=== PATIENT | female | born 1985 | race Hispanic/Latino ===

== ENCOUNTER 2018-10-01 20:14 | Emergency (ER) | payer SELFPAY ==
[~2018-10-01] VITALS: Ht 165.1 cm; Wt 86.2 kg
[~2018-10-01 20:14] MED LIST: MOTRIN; TYLENOL
[2018-10-01] MEDS ORDERED: ORPHENADRINE CITRATE 30 MG/ML VIAL IM ONE (20:45)
[2018-10-01] MEDS ORDERED: KETOROLAC TROMETHAMINE 60 MG/2 ML VIAL IM ONE (20:45)
== END 2018-10-01 21:25 | disposition home or self-care (01) ==
LOC: ER 20:14
DX: S39.012A Strain of muscle, fascia and tendon of lower back, initial encounter (principal); X50.0XXA Overexertion from strenuous movement or load, initial encounter; Y93.F1 Activity, caregiving, bathing; Y92.002 Bathroom of unspecified non-institutional (private) residence as the place of occurrence of the external cause; M54.42 Lumbago with sciatica, left side
CPT/HCPCS: 99282; J1885; J2360

== ENCOUNTER 2019-09-10 18:38 | Emergency (ER) | payer SELFPAY ==
[~2019-09-10] VITALS: Ht 165.1 cm; Wt 99.8 kg
--- OUTSIDE RECORDS SUMMARY | 2019-09-10 18:41 | XMS REPORT ---
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 Allergies, Adverse Reactions, Alerts Allergy Name Allergy Type Status Severity Reaction(s) Onset Date Inactive Date Treating Clinician Comments No Known Allergies DA Active U 2019-05-14 00:00:00 Medications This patient has no known medications. Results Test Description Test Time Test Comments Text Results Atomic Results Result Comments STREPTOCOCCUS PCR SCREEN 2019-05-15 05:46:00 STREPTOCOCCUS DYSGALACTIAE (test code=STREPGC) NEGATIVE FOR G/C NEGATIVE STREPA MOLECULAR (test code=STREPAMOL) NEGATIVE FOR GRP A NEGATIVE URINE HCG TRIAGE (ER ONLY)2019-05-14 14:20:00* Test Item Value Reference Range Comments URINE HCG TRIAGE (ER ONLY) (test code=HCGTRIAGE) Negative Urine Test Result: NEGATIVEAre internal controls (presence of a contro l line & clear background) OK? YLot # of HCG Test Kit: [id number] Date of Kit: 09/04/2020Test Performed by: Tori Perfomed on: 05/14/19- XR CHEST 2 [id number] 12:58:00 FAX: Hugh Ramirez Maurice: B St: REG FAX: Morro Jennings NP [phone] Name: COLLEEN FISH [facility] : 1985 Age/S: 33/F [address] Unit #: [id number] Loc: [place] [address] Phys: Morro Jennings FRIT MIXER AND BURNER Acct: [id number] Dis Date: Status: REG ER PHONE #: [phone] Exam Date: 05/14/2019 1229 FAX #: [phone] Reason: cough EXAMS: CPT CODE: [id number] XR CHEST 2 V 13672 REASON FOR EXAM: cough Exam Order Date: 05/14/2019 11:32 AM Ordering M.Isidra: Morro Jennings NP PROCEDURE: - XR CHEST 2 V COMPARISON: None FINDINGS: The lungs are clear. There is no pleural effusion or pneumothorax. Pulmonary vascularity is within normal limits. Cardiomediastinal silhouette is normal in size for technique. The mediastinal contours are within normal limits. Musculoskeletal structures are within normal limits. The visualized upper abdomen is within normal limits. IMPRESSION: No acute cardiopulmonary process. Location: [facility] at 1258 Reported and signed by: Robert Vazquez MD CC: Hugh Ramirez MD; Morro Jennings NP Ramana hnologist: ORLANDO MCGRATH RT(R) Trnscrd Date/T mary jane/By: 05/14/2019 (1166) : By: [email or web address] Orig Print D/T: S: 9 (9191) PAGE 1 Signed Report
[2019-09-10] MEDS ORDERED: ONDANSETRON HCL INJ 2MG/ML 2ML 2 MG/ML VIAL IV STA (19:35)
[2019-09-10] MEDS ORDERED: SODIUM CHLORIDE 0.9% 1000ML 1,000 ML IV STA (19:35)
[2019-09-10] MEDS ORDERED: ACETAMIN/BUTALBITAL/CAFFEINE TAB PO ONE (19:45)
[2019-09-10 19:54] LABS: BASOPHILS % 0.4 % (0.0-1.0); EOSINOPHILS # (AUTO) 0.2 (0.0-0.4); EOSINOPHILS % 1.9 % (0.0-6.0); HEMATOCRIT 36.2 % (34.2-44.1); HEMOGLOBIN 11.1 g/dL (12.0-16.0); LYMPHOCYTES # (AUTO) 2.4 (1.0-3.2); LYMPHOCYTES % 30.6 % (18.0-39.1); MEAN CORPUSCULAR HEMOGLOBIN 23.5 pg (28-32); MEAN CORPUSCULAR HGB CONC 30.7 g/dL (31-35); MEAN CORPUSCULAR VOLUME 76.5 fL (81-99); MONOCYTES # (AUTO) 0.5 (0.2-0.8); MONOCYTES % 6.5 % (4.4-11.3); NEUTROPHILS # (AUTO) 4.7 (2.1-6.9); NEUTROPHILS % 60.3 % (38.7-80.0); PLATELET COUNT 413 x10e3/uL (140-360); RED BLOOD COUNT 4.73 x10e6/uL (3.6-5.1); RED CELL DISTRIBUTION WIDTH 15.5 % (11.7-14.4)
[2019-09-10 20:11] LABS: ALANINE AMINOTRANSFERASE 19 IU/L (0-55); ALBUMIN 3.8 g/dL (3.5-5.0); ALBUMIN/GLOBULIN RATIO 0.9 (0.8-2.0); ALKALINE PHOSPHATASE 82 IU/L (40-150); ANION GAP 12.9 mmol/L (8-16); BLOOD UREA NITROGEN 12 mg/dL (7-26); BUN/CREATININE RATIO 13 (6-25); CALCIUM 9.3 mg/dL (8.4-10.2); CARBON DIOXIDE 22 mmol/L (22-29); CHLORIDE 107 mmol/L (98-107); EST GLOMERULAR FILTRATION RATE > 60 ML/MIN (60-); GLUCOSE 115 mg/dL (74-118); POTASSIUM 3.9 mmol/L (3.5-5.1); SODIUM 138 mmol/L (136-145)
--- NOTE | 2019-09-10 20:25 | Diagnostic Imaging Report ---
EXAMINATION: Head CT without contrast. HISTORY:Headache for 7 days, photosensitivity. COMPARISON:None. TECHNIQUE: Multidetector axial images were obtained from the foramen magnum to the vertex without contrast. The images were reconstructed using brain and bone algorithms. Thin section brain images were reformatted into coronal and sagittal planes. Dose modulation, iterative reconstruction, and/or weight based adjustment of the mA/kV was utilized to reduce the radiation dose to as low as reasonably achievable. Intravenous contrast: None IMAGE QUALITY: Acceptable. FINDINGS: Skull/scalp: No lytic or blastic. lesions. No surgical changes. Parenchyma: No abnormal density. No acute hemorrhage, mass or acute major vascular territorial infarct. Arteries: No density suggestive of thrombosis. Dural sinuses: No abnormal density suggestive of thrombosis. Ventricles: No hydrocephalus or displacement. Extra-axial spaces: No abnormal density. Brain volume: Mild generalized cerebral volume loss, advanced for patient's given age. Craniocervical junction: No mass, Chiari malformation, or basilar invagination. Sella: No mass. Paranasal/mastoid sinuses: Imaged portions unremarkable. IMPRESSION: No acute intracranial abnormality. Mild generalized cerebral volume loss. Signed by: Dr. Yesica Gonzalez M.D. on 09/10/2019 8:22 PM
[2019-09-10 20:31] LABS: BILIRUBIN,URINE NEGATIVE (NEGATIVE); CLARITY,URINE CLEAR (CLEAR); COLOR,URINE YELLOW (YELLOW); KETONES,URINE NEGATIVE (NEGATIVE); LEUKOCYTE ESTERASE ,URINE NEGATIVE (NEGATIVE); NITRITE,URINE NEGATIVE (NEGATIVE); PROTEIN,URINE DIPSTICK NEGATIVE (NEGATIVE); URINE UROBILINOGEN 1 mg/dL (0.2 - 1)
[2019-09-10 20:48] LABS: BACTERIA,URINE FEW /HPF; EPITHELIAL CELLS,URINE MODERATE /LPF; RBC,URINE 0-5 /HPF (0-5)
[2019-09-10] MEDS ORDERED: KETOROLAC TROMETHAMINE 30 MG/ML VIAL IV SCH (21:25)
== END 2019-09-10 23:40 | disposition home or self-care (01) ==
LOC: ER 18:38
DX: G44.89 Other headache syndrome (principal)
CPT/HCPCS: 36415; 70450; 80053; 81001; 84702; 85025; 87086; 99284; J1885; J2405; J7030

== ENCOUNTER 2020-04-21 17:42 | Inpatient (IN) | payer SELFPAY ==
[~2020-04-21] VITALS: Ht 165.1 cm; Wt 106.6 kg
[2020-04-21 18:18] LABS: BASOPHILS % 0.3 % (0.0-1.0); EOSINOPHILS # (AUTO) 0.1 (0.0-0.4); HEMOGLOBIN 11.7 g/dL (12.0-16.0); LYMPHOCYTES # (AUTO) 1.8 (1.0-3.2); LYMPHOCYTES % 28.3 % (18.0-39.1); MEAN CORPUSCULAR HEMOGLOBIN 24.4 pg (28-32); MEAN CORPUSCULAR HGB CONC 30.8 g/dL (31-35); MEAN CORPUSCULAR VOLUME 79.3 fL (81-99); MONOCYTES # (AUTO) 0.4 (0.2-0.8); MONOCYTES % 6.5 % (4.4-11.3); NEUTROPHILS # (AUTO) 4.1 (2.1-6.9); NEUTROPHILS % 62.7 % (38.7-80.0); PLATELET COUNT 368 x10e3/uL (140-360); RED BLOOD COUNT 4.79 x10e6/uL (3.6-5.1); RED CELL DISTRIBUTION WIDTH 15.3 % (11.7-14.4)
[2020-04-21 18:24] LABS: CLARITY,URINE CLEAR (CLEAR); COLOR,URINE YELLOW (YELLOW); KETONES,URINE NEGATIVE (NEGATIVE); LEUKOCYTE ESTERASE ,URINE NEGATIVE (NEGATIVE); NITRITE,URINE NEGATIVE (NEGATIVE); PROTEIN,URINE DIPSTICK NEGATIVE (NEGATIVE); URINE UROBILINOGEN 0.2 mg/dL (0.2 - 1)
[2020-04-21 18:25] LABS: BILIRUBIN,URINE NEGATIVE (NEGATIVE); PREGNANCY TEST, URINE NEGATIVE (NEGATIVE)
[2020-04-21 18:29] LABS: BACTERIA,URINE MODERATE /HPF; EPITHELIAL CELLS,URINE FEW /LPF
--- OUTSIDE RECORDS SUMMARY | 2020-04-21 18:32 | XMS REPORT | Continuity of Care Document ---
Author Author [facility] t Organization [facility] Address [address] [place] [address] Phone Unavailable Care Team Providers Care Assembler Molded Frames Name Role Phone NO, PCP PCP Unavailable Vilma PRABHAKAR Attphys Unavailable Payers Payer Name Policy Type Policy Number Effective Date Expiration Date S ludwig Self Pay NA 2019 00:00:00 [facility] [employer] Pos [id number] [facility] Problems This patient has no known problems. Allergies, Adverse Reactions, Alerts Allergy Name Allergy Type Status Severity Reaction(s) Onset Date Inacti ve Date Treating Clinician Comments Source No Known Allergies DA Active U 2019-05-14 00:00:00 [facility] Medications Ordered Medication Name Filled Medication Name Start Date Stop Da te Current Medication? Ordering Clinician Indication Dosage Frequency Signature (SIG) Comments Components Source Motrin Motrin Yes [facility] Tylenol Tylenol Yes [facility] Procedures Procedure Date / Time Performed Performing Clinician Sour e Computed tomography of brain without radiopaque contrast 202 00:00:00 KAYLYN JIMENEZ [facility] Encounters Start Date/Time End Date/Time Encounter Type Admission Type [facility] Care Department Encounter ID Source 2019-09-10 18:38:00 2019-09-10 23:40:00 Departed Emergency Room 1 APURVA PRABHAKAR [facility] [id number] [facility] 2018-10-01 20:14:00 2018-10-01 21:25:00 Departed Emergency Room [facility] [id number] [facility] Results Test Description Test Time Test Comments Results Result Comments Source Urine WBC 2019-09-10 20:48:00 Test Item Urine WBC (test code = 5821-4) NONE 0-5 [facility] LBN2932-04-10 20:48:00* Test Item Value Reference Range Interpretation Comments Urine RBC (test code = 96511-6) 0-5 0-5 [facility] Wswnkkuz5564-37-36 20:48:00* Test Item Value Reference Range Interpretation Comments Urine Bacteria (test code = 71076-6) FEW NONE [facility] Epithelial Nswtx1801-14-40 20:48:00 * Test Item Value Reference Range Interpretation Comments Urine Epithelial Cells (test code = 37801-3) MODERATE NONE [facility] Ipmvm8613-10-26 20:31:00* Test Item Value Reference Range Interpretation Comments Urine Color (test code = 5778-6) YELLOW YELLOW [facility] Eflakrh5021-50-80 20:31:00* Test Item Value Reference Range Interpretation Comments Urine Clarity (test code = 80370-0) CLEAR CLEAR [facility] Specific Mjqpvvo7679-76-18 20:31:00 * Test Item Value Reference Range Interpretation Comments Urine Specific [place] (test code = 5811-5) 1.030 1.010-1.02 5 H [facility] kP3961-52-79 20:31:00* Test Item Value Reference Range Interpretation Comments Urine pH (test code = 55844-7) 5.5 5-7 [facility] Leukocyte Jhsfjxen1797-38-24 20:31:00* Test Item Value Reference Range Interpretation Comments Urine Leukocyte Esterase (test code = 5799-2) NEGATIVE NEGATIVE [facility] Bujernn5815-47-10 20:31:00* Test Item Value Reference Range Interpretation Comments Urine Nitrite (test code = 31357-4) NEGATIVE NEGATIVE [facility] Gtlqwso2282-48-59 20:31:00* Test Item Value Reference Range Interpretation Comments Urine Protein (test code = 5804-0) NEGATIVE NEGATIVE [facility] Glucose (UA)2019-09-10 20:31:00* Test Item Value Reference Range Interpretation Comments Urine Glucose (UA) (test code = 2349-9) NEGATIVE NEGATIVE [facility] Gzzbhpn4582-09-47 20:31:00* Test Item Value Reference Range Interpretation Comments Urine Ketones (test code = 71801-3) NEGATIVE NEGATIVE [facility] Cporlspmeuuq1731-10-42 20:31:00* Test Item Value Reference Range Interpretation Comments Urine Urobilinogen (test code = 04653-2) 1 0.2-1 [facility] Qegojkfpm0498-61-64 20:31:00* Test Item Value Reference Range Interpretation Comments Urine Bilirubin (test code = 1978-6) NEGATIVE NEGATIVE [facility] Vpwys4487-51-58 20:31:00* Test Item Value Reference Range Interpretation Comments Urine Blood (test code = 04328-2) NEGATIVE NEGATIVE [facility] CampusCT BRAIN [id number] 20:20:00 [facility] [address] [place] [address] Patient Name: COLLEEN FISH MR #: [id number] : 1985 Age/Sex: 34/F Req #: [id number] Adm Physician: Ordered by: KAYLYN JIMENEZ DESK PENS ASSEMBLER Report #: [id number] Location: ER Room/Bed: Procedure: 030 [id number] CT/CT BRAIN WO Exam Date: 09/10/19 Exam Time: 1949 REPORT STATUS: Signed EXAM INATION: Head CT without contrast. HISTORY:Headache for 7 days, photos ensitivity. COMPARISON:None. TECHNIQUE: Multidetector axial images were o btained from the foramen magnum to the vertex without contrast. The images wer e reconstructed using brain and bone algorithms. Thin section brain images we re reformatted into coronal and sagittal planes. Dose modulation, iterative reconstruction, and/or weight based adjustment of the mA/kV was utilized to re duce the radiation dose to as low as reasonably achievable. Intravenous c ontrast: None IMAGE QUALITY: Acceptable. FINDINGS: Skull/scalp : No lytic or blastic. lesions. No surgical changes. Parenchyma: No abnor mal density. No acute hemorrhage, mass or acute major vascular territorial inf arct. Arteries: No density suggestive of thrombosis. Dural sinuse s: No abnormal density suggestive of thrombosis. Ventricles: No hydroceph alus or displacement. Extra-axial spaces: No abnormal density. Bra in volume: Mild generalized cerebral volume loss, advanced for patient's given age. Craniocervical junction: No mass, Chiari malformation, or basilar invagination. Sella: No mass. Paranasal/mastoid sinuses: Imaged por tions unremarkable. IMPRESSION: No acute intracranial abnormality. Mild generalized cerebral volume loss. Signed by: Blanquita Cherry on 09/10/2019 8:22 PM Dictated By: DELONTE GAGE MD Electronically Si gned By: DELONTE GAGE MD on 09/10/192021 Transcribed By: LOUIS on 2021 COPY TO: KAYLYN JIMENEZ NP Sodium Uztyr5151-33-90 20:14:00* Test Item Value Reference Range Interpretation Comments Sodium Level (test code = 2951-2) 138 136-145 [facility] CampusPotassium Dfvkg1831-08-96 20:14:00* Test Item Value Reference Range Interpretation Comments Potassium Level (test code = 2823-3) 3.9 3.5-5.1 [facility] CampusChloride Gwlna8821-41-23 20:14:00* Test Item Value Reference Range Interpretation Comments Chloride Level (test code = 2075-0) 107 98-107 [facility] CampusCarbon Dioxide Dbeoh3798-80-70 20:14:00* Test Item Value Reference Range Interpretation Comments Carbon Dioxide Level (test code = 2028-9) 22 22-29 [facility] CampusAnion Wtg8864-37-26 20:14:00* Test Item Value Reference Range Interpretation Comments Anion Gap (test code = 20305-9) 12.9 8-16 [facility] CampusBlood Urea Bexcogcp7123-97-79 20:14:00* Test Item Value Reference Range Interpretation Comments Blood Urea Nitrogen (test code = 3094-0) 12 7-26 [facility] CampusCreatinine2020-03-05 20:14:00* Test Item Value Reference Range Interpretation Comments Creatinine (test code = 2160-0) 0.90 0.57-1.11 [facility] CampusBUN/Creatinine Ebanj9541-11-73 20:14:00* Test Item Value Reference Range Interpretation Comments BUN/Creatinine Ratio (test code = 3097-3) 13 6- [facility] CampusEstimat Glomerular Filtration Rate 2019-09-10 20:14:00* Test Item Value Reference Range Interpretation Comments Estimat Glomerular Filtration Rate (test code = 876723669) > 60 >60 Ranges were taken from the National Kidney Disease Education Program and the [facility] Kid[facility] Foundation literature.Reference ranges:60 or greater: Gtksuj14-41 ( for 3 consecutive months): Chronic kidney disease 15 or less: Kidney failureThe University of [facility] Medical [facility] Health [facility] CampusGlucose Nrven5168-63-75 20:14:00* Test Item Value Reference Range Interpretation Comments Glucose Level (test code = BDC0169) 115 74-118 [facility] CampusCalcium Jajvi3242-23-55 20:14:00* Test Item Value Reference Range Interpretation Comments Calcium Level (test code = 72755-8) 9.3 8.4-10.2 [facility] CampusTotal Ekwsyzxsr4439-27-69 20:14:00* Test Item Value Reference Range Interpretation Comments Total Bilirubin (test code = 1975-2) 0.3 0.2-1.2 [facility] CampusAspartate Amino Transf (AST/SGOT) 2019-09-10 20:14:00* Test Item Value Reference Range Interpretation Comments Aspartate Amino Transf (AST/SGOT) (test code = Aspartate Amino Transf (AST/SGOT)) 22 5-34 [facility] CampusAlanine Aminotransferase (ALT/SGPT) 2019-09-10 20:14:00* Test Item Value Reference Range Interpretation Comments Alanine Aminotransferase (ALT/SGPT) (test code = 1742-6) 19 0-55 [facility] CampusTotal Wsdjcnx2563-43-69 20:14:00* Test Item Value Reference Range Interpretation Comments Total Protein (test code = 2885-2) 7.9 6.5-8.1 [facility] CampusAlbumin2020-03-05 20:14:00* Test Item Value Reference Range Interpretation Comments Albumin (test code = 1751-7) 3.8 3.5-5.0 [facility] CampusGlobulin2020-03-05 20:14:00* Test Item Value Reference Range Interpretation Comments Globulin (test code = 55676-9) 4.1 2.3-3.5 H [facility] CampusAlbumin/Globulin Cndoj4908-67-36 20:14:00 * Test Item Value Reference Range Interpretation Comments Albumin/Globulin Ratio (test code = 1759-0) 0.9 0.8-2.0 [facility] CampusAlkaline Uppeayvsryd9028-85-32 20:14:00* Test Item Value Reference Range Interpretation Comments Alkaline Phosphatase (test code = 6768-6) 82 40-150 [facility] CampusHuman Chorionic Gonadotropin, Qual 2019-09-10 20:05:00* Test Item Value Reference Range Interpretation Comments Human Chorionic Gonadotropin, Qual (test code = 2118-8) NEGATIVE NEGATIVE [facility] CampusWhite Blood Hurpv9820-33-35 19:56:00* Test Item Value Reference Range Interpretation Comments White Blood Count (test code = 6690-2) 7.79 4.8-10.8 [facility] CampusRed Blood Qvfuo0881-50-69 19:56:00* Test Item Value Reference Range Interpretation Comments Red Blood Count (test code = 789-8) 4.73 3.6-5.1 [facility] CampusHemoglobin2020-03-05 19:56:00* Test Item Value Reference Range Interpretation Comments Hemoglobin (test code = 48223-5) 11.1 12.0-16.0 L [facility] CampusHematocrit2020-03-05 19:56:00* Test Item Value Reference Range Interpretation Comments Hematocrit (test code = 4544-3) 36.2 34.2-44.1 [facility] CampusMean Corpuscular Kxgjrr4513-89-87 19:56:00* Test Item Value Reference Range Interpretation Comments Mean Corpuscular Volume (test code = 787-2) 76.5 81-99 L [facility] CampusMean Corpuscular Lmzqqkpqyb8540-28-10 19:56:00* Test Item Value Reference Range Interpretation Comments Mean Corpuscular Hemoglobin (test code = 785-6) 23.5 28-32 L [facility] CampusMean Corpuscular Hemoglobin Concent 2019-09-10 19:56:00* Test Item Value Reference Range Interpretation Comments Mean Corpuscular Hemoglobin Concent (test code = 786-4) 30.7 31-35 L [facility] CampusRed Cell Distribution Vuadt3930-19-14 19:56:00* Test Item Value Reference Range Interpretation Comments Red Cell Distribution Width (test code = 43433-6) 15.5 11.7 -14.4 H [facility] CampusPlatelet Rgoje0221-15-33 19:56:00* Test Item Value Reference Range Interpretation Comments Platelet Count (test code = 777-3) 413 140-360 H [facility] CampusNeutrophils (%) (Auto)2019-09-10 19:56:00 * Test Item Value Reference Range Interpretation Comments Neutrophils (%) (Auto) (test code = 48612-0) 60.3 38.7-80.0 [facility] CampusLymphocytes (%) (Auto)2019-09-10 19:56:00 * Test Item Value Reference Range Interpretation Comments Lymphocytes (%) (Auto) (test code = 736-9) 30.6 18.0-39.1 [facility] CampusMonocytes (%) (Auto)2019-09-10 19:56:00* Test Item Value Reference Range Interpretation Comments Monocytes (%) (Auto) (test code = 5905-5) 6.5 4.4-11.3 [facility] CampusEosinophils (%) (Auto)2019-09-10 19:56:00 * Test Item Value Reference Range Interpretation Comments Eosinophils (%) (Auto) (test code = 713-8) 1.9 0.0-6.0 [facility] CampusBasophils (%) (Auto)2019-09-10 19:56:00* Test Item Value Reference Range Interpretation Comments Basophils (%) (Auto) (test code = 706-2) 0.4 0.0-1.0 [facility] CampusIM GRANULOCYTES %2019-09-10 19:56:00* Test Item Value Reference Range Interpretation Comments IM GRANULOCYTES % (test code = IM GRANULOCYTES %) 0.3 0.0- 1.0 [facility] CampusNeutrophils # (Auto)2019-09-10 19:56:00* Test Item Value Reference Range Interpretation Comments Neutrophils # (Auto) (test code = 751-8) 4.7 2.1-6.9 [facility] CampusLymphocytes # (Auto)2019-09-10 19:56:00* Test Item Value Reference Range Interpretation Comments Lymphocytes # (Auto) (test code = 92142-0) 2.4 1.0-3.2 [facility] CampusMonocytes # (Auto)2019-09-10 19:56:00* Test Item Value Reference Range Interpretation Comments Monocytes # (Auto) (test code = 742-7) 0.5 0.2-0.8 [facility] CampusEosinophils # (Auto)2019-09-10 19:56:00* Test Item Value Reference Range Interpretation Comments Eosinophils # (Auto) (test code = 711-2) 0.2 0.0-0.4 [facility] CampusBasophils # (Auto)2019-09-10 19:56:00* Test Item Value Reference Range Interpretation Comments Basophils # (Auto) (test code = 704-7) 0.0 0.0-0.1 [facility] CampusAbsolute Immature Granulocyte (auto 2019-09-10 19:56:00* Test Item Value Reference Range Interpretation Comments Absolute Immature Granulocyte (auto (simón t code = Absolute Immature Granulocyte (auto) 0.02 0-0.1 [facility] CenterTREPTOCOCCUS PCR ZATEME9383-32-50 05:46:00* Test Item Value Reference Range Interpretation Comments STREPTOCOCCUS DYSGALACTIAE (test code = STREPGC) NEGATIVE FOR G/C N EGATIVE STREPA MOLECULAR (test code = STREPAMOL) NEGATIVE FOR GRP A NEGATIV E URINE HCG TRIAGE (ER ONLY)2019-05-14 14:20:00* Test Item Value Reference Range Interpretation Comments URINE HCG TRIAGE (ER ONLY) (test code = HCGTRIAGE) Negative Urine Test Result: NEGATIVEAre internal controls (presence of a contro l line & clear background) OK? YLot # of HCG Test Kit: [id number] Date of Kit: 09/04/2020Test Performed by: Tori Perfomed on: 05/14/19- XR CHEST 2 B7797-00-56 12:58:00 FAX: Hugh Ramirez Hope: B St: REG FAX: Morro Jennings NP [phone] Name: FISHCOLLEEN [facility] : 1985 Age/S: 33/F [address] Unit #: [id number] Loc: [place] [address] Phys: Morro Jennings NP Acct: [id number] Dis Date: Status: REG ER PHONE #: [phone] Exam Date: 05/14/2019 1229 FAX #: [phone] Reason: cough EXAMS: CPT CODE: [id number] XR CHEST 2 V 45670 REASON FOR EXAM: cough Exam Order Date: 05/14/2019 11:32 AM Ordering Wale: Morro Jennings NP PROCEDURE: - XR CHEST [...] limits. IMPRESSION: No acute cardiopulmonary process. Location: [facility] at 1258 Reported and signed by: Robert Vazquez MD CC: Hugh Ramirez MD; Morro Jennings NP Ramana hnologist: RT JUAN(R) Trnscrd Date/T mary jane/By: 05/14/2019 (7465) : By: [email or web address] Orig Print D/T: S: 9 (7358) PAGE 1 Signed Report
[2020-04-21 18:39] LABS: ALANINE AMINOTRANSFERASE 115 IU/L (0-55); ALBUMIN 3.6 g/dL (3.5-5.0); ALBUMIN/GLOBULIN RATIO 0.9 (0.8-2.0); ALKALINE PHOSPHATASE 89 IU/L (40-150); ANION GAP 14.2 mmol/L (8-16); BLOOD UREA NITROGEN 10 mg/dL (7-26); BUN/CREATININE RATIO 12 (6-25); CALCIUM 8.5 mg/dL (8.4-10.2); CARBON DIOXIDE 19 mmol/L (22-29); CHLORIDE 105 mmol/L (98-107); CREATININE, SERUM 0.84 mg/dL (0.57-1.11); EST GLOMERULAR FILTRATION RATE > 60 ML/MIN (60-); GLUCOSE 300 mg/dL (74-118); POTASSIUM 4.2 mmol/L (3.5-5.1); SODIUM 134 mmol/L (136-145)
[2020-04-21] MEDS ORDERED: ONDANSETRON HCL INJ 2MG/ML 2ML 2 MG/ML VIAL IV STA (18:58)
[2020-04-21] MEDS ORDERED: SODIUM CHLORIDE 0.9% 1000ML 1,000 ML IV STA (18:58)
[2020-04-21] MEDS ORDERED: KETOROLAC TROMETHAMINE 30 MG/ML VIAL IV STA (18:58)
[2020-04-21] MEDS ORDERED: MORPHINE SULFATE INJ 4 MG/ML INJ 1ML IV PRN (19:00)
--- NOTE | 2020-04-21 19:34 | Emergency Department Note ---
History of Present Illnes History of Present Illness Chief Complaint: Abdominal Complaints History of Present Illness This is a 34 year old female arrived to the ED with RUQ pain . Historian: Patient Arrival Mode: Car Onset (how long ago): day(s) Radiation: Reports back Severity: mild Onset quality: sudden Duration (how long): day(s) Progression: worsening Chronicity: new Exacerbating factors: eating Associated symptoms: Reports nausea/vomiting Past Medical/Family History Physician Review I have reviewed the patient's past medical and family history. Any updates have been documented here. Past Medical History Recent Fever: No Clinical Suspicion of Infectio: No New/Unexplained Change in Ment: No Past Medical History: Anxiety Other Medical History: PANIC ATTACKS Past Surgical History: Tubal Ligation Social History Smoking Cessation: Never Smoker Counseling Performed: No Alcohol Use: None Any Illegal Drug Use: No Other Last Tetanus: utd Any Pre-Existing Lines (PICC,: No Review of Systems Review of Systems Constitutional: Reports no symptoms EENTM: Reports no symptoms Cardiovascular: Reports no symptoms Respiratory: Reports no symptoms Gastrointestinal: Reports as per HPI, Reports abdominal pain, Reports nausea, Reports vomiting Genitourinary: Reports no symptoms Musculoskeletal: Reports no symptoms Integumentary: Reports no symptoms Neurological: Reports no symptoms Psychological: Reports no symptoms Endocrine: Reports no symptoms Hematological/Lymphatic: Reports no symptoms Physical Exam Related Data Allergies: Coded Allergies: No Known Allergies (Unverified , 02/15/12) Triage Vital Signs Vital Signs Date Time Temp Pulse Resp B/P (MAP) Pulse Ox O2 Delivery O2 Flow Rate FiO2 04/21/20 17:52 98.3 82 18 129/77 100 Room Air Physical Exam CONSTITUTIONAL Constitutional: Present well-developed, Present well-nourished HENT HENT: Present normocephalic, Present atraumatic, Present oropharynx clear/moist, Present nose normal HENT L/R: Present left ext ear normal, Present right ext ear normal EYES Eyes: Reports PERRL, Reports conjunctivae normal NECK Neck: Present ROM normal PULMONARY Pulmonary: Present effort normal, Present breath sounds normal CARDIOVASCULAR Cardiovascular: Present regular rhythm, Present heart sounds normal, Present capillary refill normal, Present normal rate GASTROINTESTINAL Abdominal: Present soft, Present bowel sounds normal, Present tender GENITOURINARY Genitourinary: Present exam deferred SKIN Skin: Present warm, Present dry MUSCULOSKELETAL Musculoskeletal: Present ROM normal NEUROLOGICAL Neurological: Present alert, Present oriented x 3, Present no gross motor or sensory deficits PSYCHOLOGICAL Psychological: Present mood/affect normal, Present judgement normal Results Laboratory Result Diagram: 04/21/20 1800 04/21/20 1800 Laboratory Laboratory Tests Test 04/21/20 18:00 White Blood Count 6.50 x10e3/uL (4.8-10.8) Red Blood Count 4.79 x10e6/uL (3.6-5.1) Hemoglobin 11.7 g/dL (12.0-16.0) Hematocrit 38.0 % (34.2-44.1) Mean Corpuscular Volume 79.3 fL (81-99) Mean Corpuscular Hemoglobin 24.4 pg (28-32) Mean Corpuscular Hemoglobin Concent 30.8 g/dL (31-35) Red Cell Distribution Width 15.3 % (11.7-14.4) Platelet Count 368 x10e3/uL (140-360) Neutrophils (%) (Auto) 62.7 % (38.7-80.0) Lymphocytes (%) (Auto) 28.3 % (18.0-39.1) Monocytes (%) (Auto) 6.5 % (4.4-11.3) Eosinophils (%) (Auto) 2.0 % (0.0-6.0) Basophils (%) (Auto) 0.3 % (0.0-1.0) Neutrophils # (Auto) 4.1 (2.1-6.9) Lymphocytes # (Auto) 1.8 (1.0-3.2) Monocytes # (Auto) 0.4 (0.2-0.8) Eosinophils # (Auto) 0.1 (0.0-0.4) Basophils # (Auto) 0.0 (0.0-0.1) Absolute Immature Granulocyte (auto 0.01 x10e3/uL (0-0.1) Urine Color Yellow (YELLOW) Urine Clarity Clear (CLEAR) Urine pH 5.5 (5 - 7) Urine Specific [place] 1.025 (1.010-1.025) Urine Protein Negative (NEGATIVE) Urine Glucose (UA) 3+ (NEGATIVE) Urine Ketones Negative (NEGATIVE) Urine Blood Moderate (NEGATIVE) Urine Nitrite Negative (NEGATIVE) Urine Bilirubin Negative (NEGATIVE) Urine Urobilinogen 0.2 mg/dL (0.2 - 1) Urine Leukocyte Esterase Negative (NEGATIVE) Urine RBC 6-10 /HPF (0-5) Urine WBC None /HPF (0-5) Urine Epithelial Cells Few /LPF (NONE) Urine Bacteria Moderate /HPF (NONE) Urine Test Negative (NEGATIVE) Sodium Level 134 mmol/L (136-145) Potassium Level 4.2 mmol/L (3.5-5.1) Chloride Level 105 mmol/L (98-107) Carbon Dioxide Level 19 mmol/L (22-29) Anion Gap 14.2 mmol/L (8-16) Blood Urea Nitrogen 10 mg/dL (7-26) Creatinine 0.84 mg/dL (0.57-1.11) Estimat Glomerular Filtration Rate > 60 ML/MIN (60-) BUN/Creatinine Ratio 12 (6-25) Glucose Level 300 mg/dL (74-118) Calcium Level 8.5 mg/dL (8.4-10.2) Total Bilirubin 0.3 mg/dL (0.2-1.2) Aspartate Amino Transf (AST/SGOT) 116 IU/L (5-34) Alanine Aminotransferase (ALT/SGPT) 115 IU/L (0-55) Alkaline Phosphatase 89 IU/L (40-150) Total Protein 7.6 g/dL (6.5-8.1) Albumin 3.6 g/dL (3.5-5.0) Globulin 4.0 g/dL (2.3-3.5) Albumin/Globulin Ratio 0.9 (0.8-2.0) Lab results reviewed: Yes Imaging Imaging results reviewed: Yes Assessment & Plan Medical Decision Making MDM 34-year-old female right ED via require abdominal pain, some nausea vomiting. Patient with positive Bailey sign on exam, CT of the pelvis and ultrasound both consistent with gallstones. Patient symptomatically positive for acute cholecystitis. Patient kept nothing by mouth, admitted for cholecystectomy as an inpatient. Dr. Mcmahon informed. Assessment & Plan Final Impression: (1) Abdominal pain (2) Acute cholecystitis Depart Disposition: ADMITTED Last Vital Signs Date Time Temp Pulse Resp B/P (MAP) Pulse Ox O2 Delivery O2 Flow Rate FiO2 04/21/20 17:52 98.3 82 18 129/77 100 Room Air Home Meds Reported Medications [Motrin] No Conflict Check 07/13/11 [Tylenol] No Conflict Check 07/13/11 Medications in the ED Sodium Chloride 1,000 ml @ 0 mls/hr Q0M STAT IV ; Start 04/21/20 at 18:58; Stop 04/21/20 at 18:59; Status DC Ketorolac Tromethamine 30 mg ONCE STAT IV ; Start 04/21/20 at 18:58; Stop 04/21/20 at 19:02; Status DC Morphine Sulfate 4 mg ONCE PRN IV SEVERE PAIN (7-10); Start 04/21/20 at 19:00; Stop 04/28/20 at 18:59 Ondansetron HCl 4 mg NOW STAT IV ; Start 04/21/20 at 18:58; Stop 04/21/20 at 19:03; Status DC ARCHANA OWENS DO Apr 21, 2020 19:34
[2020-04-21] MEDS ORDERED: SODIUM CHLORIDE 0.9% 50ML 50 ML ONE ×2 (20:28→22:36)
[2020-04-21] MEDS ORDERED: IOPAMIDOL 370 MG/ML 200 ML INFUS..BTL INJ ONE ×2 (20:28→22:36)
--- NOTE | 2020-04-21 21:07 | Diagnostic Imaging Report ---
EXAM: Gallbladder Ultrasound INDICATION: ^RUQ pain ^[id number] ^[id number] COMPARISON: No images available for comparison, report from gallbladder ultrasound 08/27/2012 TECHNIQUE: Transverse and longitudinal images of the gallbladder were obtained. FINDINGS: Liver: Liver is normal in size with right hepatic lobe measuring up to 13.5 cm. Increased hepatic echogenicity. Gallbladder: Stones/Sludge: None Wall: 0.2 cm Appearance: No wall thickening, pericholecystic fluid or hydrops. Sonographic Bailey's Sign: Positive Bile Ducts: Intrahepatic Ducts: No dilatation Extrahepatic Ducts: Common bile duct measures 0.3 cm, no dilatation Visualized portions of the right kidney is sonographically unremarkable. Right kidney measures up to 11.3 cm in length. Visualized portions of the pancreas are sonographically unremarkable. Free Fluid: No ascites or pleural effusion IMPRESSION: 1. Positive Bailey's sign however no additional sonographic findings to suggest acute cholecystitis. Positive Bailey sign could be related to referred pain from the abdomen, correlate with physical exam. 2. Increased hepatic echogenicity, compatible with steatosis. Signed by: Dr. Duane Dos Santos M.D. on 04/21/2020 9:04 PM
--- NOTE | 2020-04-21 21:24 | Diagnostic Imaging Report ---
EXAM: CT Abdomen and Pelvis WITH contrast INDICATION: ^Y ^RUQ pain ^[id number] ^[id number] COMPARISON: Gallbladder ultrasound performed earlier on the same day (04/21/2020) TECHNIQUE: Abdomen and pelvis were scanned utilizing a multidetector helical scanner from the lung base to the pubic symphysis after administration of IV contrast. Coronal and sagittal reformations were obtained. Routine protocol was performed. Scan was performed when during portal venous phase. IV CONTRAST: 100 mL of Isovue 370 ORAL CONTRAST: None COMPLICATIONS: None RADIATION DOSE: Total DLP: 817.4 mGy*cm Estimated effective dose: (DLP x 0.015 x size factor) mSv CTDIvol has been reviewed. It is below the limits set by the Radiation Protocol Committee (RPC). Dose modulation, iterative reconstruction, and/or weight based adjustment of the mA/kV was utilized to reduce the radiation dose to as low as reasonably achievable. FINDINGS: LINES and TUBES: None. LOWER THORAX: Lung bases are clear. Visualized portions of inferior mediastinum are unremarkable. HEPATOBILIARY: Hepatomegaly with the right hepatic lobe measuring up to 19 cm in craniocaudal dimension. Diffuse hepatic hypoattenuation, compatible with steatosis. No focal hepatic lesions. No biliary ductal dilation. GALLBLADDER: Single 4 mm stone layering in the gallbladder. No gallbladder dilation, wall thickening, or surrounding inflammatory fat stranding. SPLEEN: No splenomegaly. PANCREAS: No focal masses or ductal dilatation. ADRENALS: No adrenal nodules KIDNEYS/URETERS: Kidneys enhance symmetrically. No hydronephrosis. No cystic or solid mass lesions. No stones. GI TRACT: No abnormal distention, wall thickening, or evidence of bowel obstruction. Appendix is normal. PELVIC ORGANS/BLADDER: Uterus is unremarkable. Follicular pattern of the bilateral ovaries, compatible with menstrual age female. Urinary bladder is unremarkable. LYMPH NODES: No lymphadenopathy. VESSELS: Unremarkable. PERITONEUM / RETROPERITONEUM: No free air or fluid. BONES: No acute osseous abnormality. SOFT TISSUES: Unremarkable. IMPRESSION: 1. Single small stone within the gallbladder which was not visualized on prior ultrasound. No associated inflammatory findings to suggest acute cholecystitis. 2. Hepatomegaly with hepatic steatosis. Signed by: Dr. Duane Dos Santos M.D. on 04/21/2020 9:20 PM
[2020-04-21] MEDS ORDERED: LEVOFLOXACIN 500MG/D5W 100ML IV SCH (22:00)
--- OUTSIDE RECORDS SUMMARY | 2020-04-21 22:25 | XMS REPORT | Continuity of Care Document ---
Author Author [facility] t Organization [facility] Address [address] [place] [address] Phone Unavailable Care Team Providers Care Huc Ob Name Role Phone NO, PCP PCP Unavailable ROMAN, S ARCHANA Attphys Unavailable AKI, Vilma MIXON Attphys Unavailable Payers Payer Name Policy Type Policy Number Effective Date Expiration Date S ource Self Pay NA 2019 00:00:00 [facility] [employer] Pos [id number] [facility] Problems This patient has no known problems. Allergies, Adverse Reactions, Alerts Allergy Name Allergy Type Status Severity Reaction(s) Onset Date Inacti ve Date Treating Clinician Comments Source No Known Allergies DA Active U 2019-05-14 00:00:00 [facility] Medications Ordered Medication Name Filled Medication Name Start Date Stop Da te Current Medication? Ordering Clinician Indication Dosage Frequency Signature (SIG) Comments Components Source Motrin Motrin Yes [facility] Tylenol Tylenol Yes [facility] Procedures Procedure Date / Time Performed Performing Clinician Sourc e Computed tomography of brain without radiopaque contrast 202 00:00:00 KAYLYN JIMENEZ [facility] Encounters Start Date/Time End Date/Time Encounter Type Admission Type Attendi [facility] Care Department Encounter ID Source 2019-09-10 18:38:00 2019-09-10 23:40:00 Departed Emergency Room 1 APURVA PRABHAKAR [facility] [id number] [facility] 2018-10-01 20:14:00 2018-10-01 21:25:00 Departed Emergency Room [facility] [id number] [facility] Results Test Description Test Time Test Comments Results Result Comments Source CT ABDOMEN/PELVIS W 2020-04-21 21:11:00 [facility] : 1985 Sex: [place] [address] Patient Name: COLLEEN FISH MR #: [id number] : 1985 Age/Sex: 34/F Req #: [id number] Adm Physician: Ordered by: ARCHANA OWENS DO Report #: [id number] Location: ER Room/Bed: Procedure: [id number] CT/CT ABDOMEN/PELVIS W Exam Date: 04/21/20 Exam Time: 2029 REPORT STATUS: Signed EXAM: CT Abdomen and Pelvis WITH contrast INDICATION: Y RUQ pain 20200421 COMPARISON: Gallbladder ultrasound performed earlier on the same day (04/21/2020) TECHNIQUE: Abdomen and pelvis were scanned utilizing a multidetector helical scanner from the lung base to the pubic symphysis after administration of IV contrast. Coronal and sagittal reformations were obtained. Routine protocol was performed. Scan was performed when during portal venous phase. IV CONTRAST: 100 mL of Isovue 370 ORAL CONTRAST: None COMPLICATIONS: None RADIATION DOSE: Total DLP: 817.4 mGy*cm Estimated effective dose: (DLP x 0.015 x size factor) mSv CTDIvol has been reviewed. It is below the limits set by the Radiation Protocol Committee (RPC). Dose modulation, iterative reconstruction, and/or weight based adjustment of the mA/kV was utilized to reduce the radiation dose to as low as reasonably achievable. FINDINGS: LINES and TUBES: None. LOWER THORAX: Lung bases are clear. Visualized portions of inferior mediastinum are unremarkable. HEPATOBILIARY: Hepatomegaly with the right hepatic lobe measuring up to 19 cm in craniocaudal dimension. Diffuse hepatic hypoattenuation, compatible with steatosis. No focal hepatic lesions. No biliary ductal dilation. GALLBLADDER: Single 4 mm stone layering in the gallbladder. No gallbladder dilation, wall thickening, or surrounding inflammatory fat stranding. SPLEEN: No splenomegaly. PANCREAS: No focal masses or ductal dilatation. ADRENALS: No adrenal nodules KIDNEYS/URETERS: Kidneys enhance symmetrically. No hydronephrosis. No cystic or solid mass lesions. No stones. GI TRACT: No abnormal distention, wall thickening, or evidence of bowel obstruction. Appendix is normal. PELVIC ORGANS/BLADDER: Uterus is unremarkable. Follicular pattern of the bilateral ovaries, compatible with menstrual age female. Urinary bladder is unremarkable. LYMPH NODES: No lymphadenopathy. VESSELS: Unremarkable. PERITONEUM / RETROPERITONEUM: No free air or fluid. BONES: No acute osseous abnormality. SOFT TISSUES: Unremarkable. IMPRESSION: 1. Single small stone within the gallbladder which was not visualized on prior ultrasound. No associated inflammatory findings to suggest acute cholecystitis. 2. Hepatomegaly with hepatic steatosis. Signed by: Dr. Shara Dos Santos M.D. on 04/21/2020 9:20 PM Dictated By: SHARA DOS SANTOS MD 19 Transcribed By: LOUIS on 04/21/202119 COPY TO: ARCHANA OWENS, DO US GALLBLADDER 2020-04-21 21:01:00 [facility] : 1985 Sex: F [place] [address] Patient Name: COLLEEN FISH MR #: [id number] : 1985 Age/Sex: 34/F Req #: [id number] [facility] Physician: Ordered by: Selwyn Genao MD Report #: [id number] Location: ER Room/Bed: Procedure: [id number] US/US GALLBLADDER Exam Date: 04/21/20 Exam Time: 1935 REPORT STATUS: Signed EXAM: Gallbladder Ultrasound IND ICATION: RUQ pain [id number] 1935 COMPARISON: No images available for comparison, report from gallbladder ultrasound 08/27/2012 TECHNIQUE: Transverse and longitudinal images of the gallbladder were obtained. FINDINGS: Liver: Liver is normal in size with right hepatic lobe measuring up to 13.5 cm. Increased hepatic echogenicity. Gallbladder: Stones/Sludge: None Wall: 0.2 cm Appearance: No wall thickening, pericholecystic fluid or hydrops. Sonographic Bailey's Sign: Positive Bile Ducts: Intrahepatic Ducts: No dilatation Extrahepatic Ducts: Common bile duct measures 0.3 cm, no dilatation Visualized portions of the right kidney is sonographically unremarkable. Right kidney measures up to 11.3 cm in length. Visualized portions of the pancreas are sonographically unremarkable. Free Fluid: No ascites or pleural effusion IMPRESSION: 1. Positive Bailey's sign however no additional sonographic findings to suggest acute cholecystitis. Positive Bailey sign could be related to referred pain from the abdomen, correlate with physical exam. 2. Increased hepatic echogenicity, compatible with steatosis. Signed by: Dr. Shara Dos Santos M.D. on 04/21/2020 9:04 PM Dictated By: SHARA DOS SANTOS MD 03 Transcribed By: LOUIS on 04/21/202103 COPY TO: SELWYN GENAO MD Urine WBC 2019-09-10 20:48:00 Test Item Urine WBC (test code = 5821-4) NONE 0-5 [facility] [id number] 20:48:00* Test Item Value Reference Range Interpretation Comments Urine RBC (test code = 93534-0) 0-5 0-5 [facility] Nglgbywj5951-16-32 20:48:00* Test Item Value Reference Range Interpretation Comments Urine Bacteria (test code = 77437-8) FEW NONE [facility] Epithelial Hngwn9535-32-01 20:48:00 * Test Item Value Reference Range Interpretation Comments Urine Epithelial Cells (test code = 39793-0) MODERATE NONE [facility] Elcwv5372-34-61 20:31:00* Test Item Value Reference Range Interpretation Comments Urine Color (test code = 5778-6) YELLOW YELLOW [facility] Bqqqwgy6691-69-02 20:31:00* Test Item Value Reference Range Interpretation Comments Urine Clarity (test code = 92540-4) CLEAR CLEAR [facility] Specific Ddkukyt1605-69-43 20:31:00 * Test Item Value Reference Range Interpretation Comments Urine Specific George (test code = 5811-5) 1.030 1.010-1.02 5 H [facility] vW8225-22-22 20:31:00* Test Item Value Reference Range Interpretation Comments Urine pH (test code = 70909-9) 5.5 5-7 [facility] Leukocyte Atwamrwb6368-78-35 20:31:00* Test Item Value Reference Range Interpretation Comments Urine Leukocyte Esterase (test code = 5799-2) NEGATIVE NEGATIVE [facility] Xleqybd9984-07-31 20:31:00* Test Item Value Reference Range Interpretation Comments Urine Nitrite (test code = 63144-8) NEGATIVE NEGATIVE [facility] Uvhhjrd5769-06-35 20:31:00* Test Item Value Reference Range Interpretation Comments Urine Protein (test code = 5804-0) NEGATIVE NEGATIVE [facility] Glucose (UA)2019-09-10 20:31:00* Test Item Value Reference Range Interpretation Comments Urine Glucose (UA) (test code = 2349-9) NEGATIVE NEGATIVE [facility] Rvrmkfa2873-14-84 20:31:00* Test Item Value Reference Range Interpretation Comments Urine Ketones (test code = 64692-8) NEGATIVE NEGATIVE [facility] Yzlhfttbdfca6511-76-01 20:31:00* Test Item Value Reference Range Interpretation Comments Urine Urobilinogen (test code = 47414-9) 1 0.2-1 [facility] Jzncwggoj9987-81-12 20:31:00* Test Item Value Reference Range Interpretation Comments Urine Bilirubin (test code = 1978-6) NEGATIVE NEGATIVE [facility] Ycjwj1689-27-79 20:31:00* Test Item Value Reference Range Interpretation Comments Urine Blood (test code = 53622-7) NEGATIVE NEGATIVE [facility] DistrictCT BRAIN EP3905-01-05 20:20:00 [facility] [address] [place] [address] Patient Name: COLLEEN FISH MR #: [id number] : 1985 Age/Sex: 34/F Req #: [id number] Adm Physician: Ordered by: KAYLYN JIMENEZ BUSINESS SOLUTIONS CONSULTANT Report #: [id number] Location: ER Room/Bed: Procedure: [id number] CT/CT [...] 2021 COPY TO: KAYLYN JIMENEZ NP Sodium Zzcyd2713-48-25 20:14:00* Test Item Value Reference Range Interpretation Comments Sodium Level (test code = 2951-2) 138 136-145 [facility] Ochqh1453-69-56 20:14:00* Test Item Value Reference Range Interpretation Comments Potassium Level (test code = 2823-3) 3.9 3.5-5.1 [facility] DistrictChloride Ydxlc5026-28-95 20:14:00* Test Item Value Reference Range Interpretation Comments Chloride Level (test code = 2075-0) 107 98-107 [facility] DistrictCarbon Dioxide Hxltc5296-04-59 20:14:00* Test Item Value Reference Range Interpretation Comments Carbon Dioxide Level (test code = 2028-9) 22 22-29 [facility] DistrictAnion Aei7973-06-00 20:14:00* Test Item Value Reference Range Interpretation Comments Anion Gap (test code = 78734-7) 12.9 8-16 [facility] DistrictBlood Urea Jlmbesdh4836-29-18 20:14:00* Test Item Value Reference Range Interpretation Comments Blood Urea Nitrogen (test code = 3094-0) 12 7-26 [facility] DistrictCreatinine2020-03-05 20:14:00* Test Item Value Reference Range Interpretation Comments Creatinine (test code = 2160-0) 0.90 0.57-1.11 [facility] DistrictBUN/Creatinine Txtgt4598-71-68 20:14:00* Test Item Value Reference Range Interpretation Comments BUN/Creatinine Ratio (test code = 3097-3) 13 6-25 [facility] DistrictEstimat Glomerular Filtration Rate 2019-09-10 20:14:00* Test Item Value Reference Range Interpretation Comments Estimat Glomerular Filtration Rate (test code = 343660917) > 60 >60 Ranges were taken from the National Kidney Disease Education Program and the [employer] literature.Reference ranges:60 or greater: Cggwqh53-39 ( for 3 consecutive months): Chronic kidney disease 15 or less: Kidney failureBallinger Memorial Hospital DistrictGlucose Gtecv1813-03-64 20:14:00* Test Item Value Reference Range Interpretation Comments Glucose Level (test code = BLE4737) 115 74-118 [facility] DistrictCalcium Ahtfr6798-18-05 20:14:00* Test Item Value Reference Range Interpretation Comments Calcium Level (test code = 85504-9) 9.3 8.4-10.2 [facility] DistrictTotal Nchqckmfw3907-33-54 20:14:00* Test Item Value Reference Range Interpretation Comments Total Bilirubin (test code = 1975-2) 0.3 0.2-1.2 [facility] DistrictAspartate Amino Transf (AST/SGOT) 2019-09-10 20:14:00* Test Item Value Reference Range Interpretation Comments Aspartate Amino Transf (AST/SGOT) (test code = Aspartate Amino Transf (AST/SGOT)) 22 5-34 [facility] DistrictAlanine Aminotransferase (ALT/SGPT) 2019-09-10 20:14:00* Test Item Value Reference Range Interpretation Comments Alanine Aminotransferase (ALT/SGPT) (test code = 1742-6) 19 0-55 [facility] DistrictTotal Qilqxtw2655-50-54 20:14:00* Test Item Value Reference Range Interpretation Comments Total Protein (test code = 2885-2) 7.9 6.5-8.1 [facility] DistrictAlbumin2020-03-05 20:14:00* Test Item Value Reference Range Interpretation Comments Albumin (test code = 1751-7) 3.8 3.5-5.0 [facility] DistrictGlobulin2020-03-05 20:14:00* Test Item Value Reference Range Interpretation Comments Globulin (test code = 50769-8) 4.1 2.3-3.5 H [facility] DistrictAlbumin/Globulin Noggd5462-18-72 20:14:00 * Test Item Value Reference Range Interpretation Comments Albumin/Globulin Ratio (test code = 1759-0) 0.9 0.8-2.0 [facility] DistrictAlkaline Svjxnzdlxzq0635-62-48 20:14:00* Test Item Value Reference Range Interpretation Comments Alkaline Phosphatase (test code = 6768-6) 82 40-150 [facility] DistrictHuman Chorionic Gonadotropin, Qual 2019-09-10 20:05:00* Test Item Value Reference Range Interpretation Comments Human Chorionic Gonadotropin, Qual (test code = 2118-8) NEGATIVE NEGATIVE [facility] DistrictWhite Blood Ewrsc6280-09-86 19:56:00* Test Item Value Reference Range Interpretation Comments White Blood Count (test code = 6690-2) 7.79 4.8-10.8 [facility] DistrictRed Blood Xfjer8810-03-81 19:56:00* Test Item Value Reference Range Interpretation Comments Red Blood Count (test code = 789-8) 4.73 3.6-5.1 [facility] DistrictHemoglobin2020-03-05 19:56:00* Test Item Value Reference Range Interpretation Comments Hemoglobin (test code = 72416-4) 11.1 12.0-16.0 L [facility] DistrictHematocrit2020-03-05 19:56:00* Test Item Value Reference Range Interpretation Comments Hematocrit (test code = 4544-3) 36.2 34.2-44.1 [facility] DistrictMean Corpuscular Hoecmf8709-84-98 19:56:00* Test Item Value Reference Range Interpretation Comments Mean Corpuscular Volume (test code = 787-2) 76.5 81-99 L [facility] DistrictMean Corpuscular Tsgjkgbvub5339-89-08 19:56:00* Test Item Value Reference Range Interpretation Comments Mean Corpuscular Hemoglobin (test code = 785-6) 23.5 28-32 L [facility] DistrictMean Corpuscular Hemoglobin Concent 2019-09-10 19:56:00* Test Item Value Reference Range Interpretation Comments Mean Corpuscular Hemoglobin Concent (test code = 786-4) 30.7 31-35 L [facility] DistrictRed Cell Distribution Gkavl3889-51-21 19:56:00* Test Item Value Reference Range Interpretation Comments Red Cell Distribution Width (test code = 64887-1) 15.5 11.7 -14.4 H [facility] DistrictPlatelet Frsrf9156-86-27 19:56:00* Test Item Value Reference Range Interpretation Comments Platelet Count (test code = 777-3) 413 140-360 H [facility] DistrictNeutrophils (%) (Auto)2019-09-10 19:56:00 * Test Item Value Reference Range Interpretation Comments Neutrophils (%) (Auto) (test code = 45425-6) 60.3 38.7-80.0 [facility] DistrictLymphocytes (%) (Auto)2019-09-10 19:56:00 * Test Item Value Reference Range Interpretation Comments Lymphocytes (%) (Auto) (test code = 736-9) 30.6 18.0-39.1 [facility] DistrictMonocytes (%) (Auto)2019-09-10 19:56:00* Test Item Value Reference Range Interpretation Comments Monocytes (%) (Auto) (test code = 5905-5) 6.5 4.4-11.3 [facility] DistrictEosinophils (%) (Auto)2019-09-10 19:56:00 * Test Item Value Reference Range Interpretation Comments Eosinophils (%) (Auto) (test code = 713-8) 1.9 0.0-6.0 [facility] DistrictBasophils (%) (Auto)2019-09-10 19:56:00* Test Item Value Reference Range Interpretation Comments Basophils (%) (Auto) (test code = 706-2) 0.4 0.0-1.0 [facility] DistrictIM GRANULOCYTES %2019-09-10 19:56:00* Test Item Value Reference Range Interpretation Comments IM GRANULOCYTES % (test code = IM GRANULOCYTES %) 0.3 0.0- 1.0 [facility] DistrictNeutrophils # (Auto)2019-09-10 19:56:00* Test Item Value Reference Range Interpretation Comments Neutrophils # (Auto) (test code = 751-8) 4.7 2.1-6.9 [facility] DistrictLymphocytes # (Auto)2019-09-10 19:56:00* Test Item Value Reference Range Interpretation Comments Lymphocytes # (Auto) (test code = 43600-5) 2.4 1.0-3.2 [facility] DistrictMonocytes # (Auto)2019-09-10 19:56:00* Test Item Value Reference Range Interpretation Comments Monocytes # (Auto) (test code = 742-7) 0.5 0.2-0.8 [facility] DistrictEosinophils # (Auto)2019-09-10 19:56:00* Test Item Value Reference Range Interpretation Comments Eosinophils # (Auto) (test code = 711-2) 0.2 0.0-0.4 [facility] DistrictBasophils # (Auto)2019-09-10 19:56:00* Test Item Value Reference Range Interpretation Comments Basophils # (Auto) (test code = 704-7) 0.0 0.0-0.1 [facility] DistrictAbsolute Immature Granulocyte (auto 2019-09-10 19:56:00* Test Item Value Reference Range Interpretation Comments Absolute Immature Granulocyte (auto (simón t code = Absolute Immature Granulocyte (auto) 0.02 0-0.1 [facility] WorthTREPTOCOCCUS PCR TDQGXV4284-33-88 05:46:00* Test Item Value Reference Range Interpretation [...] OK? YLot # of HCG Test Kit: [id number] Date of Kit: 09/04/2020Test Performed by: Tori Perfomed on: 05/14/19- XR CHEST 2 Z0789-51-23 12:58:00 FAX: Hugh Ramirez [place]: B St: REG FAX: Morro Jennings NP [phone] Name: COLLEEN FISH [facility] : 1985 Age/S: 33/F [address] [facility] Unit #: [id number] Loc: ANGI [place] [address] Phys: Morro Jennings BUSINESS SOLUTIONS CONSULTANT Acct: [id number] Dis Date: Status: REG ER PHONE #: [phone] Exam Date: 05/14/2019 1229 FAX #: [phone] Reason: cough EXAMS: CPT CODE: [id number] XR CHEST 2 V 05985 REASON FOR EXAM: cough Exam Order Date: 05/14/2019 11:32 AM Ordering M.Miguel.: Morro Jennings NP PROCEDURE: - XR CHEST [...] limits. IMPRESSION: No acute cardiopulmonary process. Location: [facility] at 1258 Reported and signed by: Robert Vazquez MD CC: Hugh Ramirez MD; Morro Jennings NP Ramana hnologist: RT MARTINEZ (R) Trnscrd Date/T mary jane/By: 05/14/2019 (4446) : By: [email or web address] Orig Print D/T: S: 9 ([id number]) PAGE 1 Signed Report
[2020-04-21 23:01] VITALS: BP 134/72
[2020-04-22] VITALS (8 sets, daily range): BP systolic 111–134; BP diastolic 57–78
--- NOTE | 2020-04-22 02:26 | NUR ---
SPOKE TO MD [facility] LIGHTING SPECIALIST JOSH. NEW ORDERS RECEIVED.
[2020-04-22] MEDS ORDERED: MORPHINE SULFATE 2 MG/ML SYR 1ML IV PRN (02:30)
[2020-04-22 05:39] LABS: BASOPHILS % 0.6 % (0.0-1.0); EOSINOPHILS # (AUTO) 0.2 (0.0-0.4); EOSINOPHILS % 2.2 % (0.0-6.0); HEMATOCRIT 34.8 % (34.2-44.1); HEMOGLOBIN 10.8 g/dL (12.0-16.0); LYMPHOCYTES # (AUTO) 1.9 (1.0-3.2); MEAN CORPUSCULAR HEMOGLOBIN 25.2 pg (28-32); MEAN CORPUSCULAR VOLUME 81.1 fL (81-99); MONOCYTES # (AUTO) 0.6 (0.2-0.8); MONOCYTES % 8.6 % (4.4-11.3); NEUTROPHILS # (AUTO) 4.1 (2.1-6.9); NEUTROPHILS % 60.2 % (38.7-80.0); PLATELET COUNT 292 x10e3/uL (140-360); RED BLOOD COUNT 4.29 x10e6/uL (3.6-5.1); RED CELL DISTRIBUTION WIDTH 15.9 % (11.7-14.4)
[2020-04-22 05:58] LABS: ALANINE AMINOTRANSFERASE 104 IU/L (0-55); ALBUMIN 3.1 g/dL (3.5-5.0); ALBUMIN/GLOBULIN RATIO 0.9 (0.8-2.0); ALKALINE PHOSPHATASE 75 IU/L (40-150); ANION GAP 11.7 mmol/L (8-16); BLOOD UREA NITROGEN 9 mg/dL (7-26); BUN/CREATININE RATIO 13 (6-25); CALCIUM 8.2 mg/dL (8.4-10.2); CARBON DIOXIDE 21 mmol/L (22-29); CHLORIDE 107 mmol/L (98-107); CREATININE, SERUM 0.68 mg/dL (0.57-1.11); EST GLOMERULAR FILTRATION RATE > 60 ML/MIN (60-); GLUCOSE 138 mg/dL (74-118); POTASSIUM 3.7 mmol/L (3.5-5.1); SODIUM 136 mmol/L (136-145)
--- NOTE | 2020-04-22 06:13 | NUR ---
CALLED MD Oliverio ALDANA REGARDING CONSULT. AWAITING CALL BACK.
--- NOTE | 2020-04-22 06:51 | NUR ---
SPOKE TO MD Oliverio ALDANA. NEW ORDERS RECEIVED.
--- NOTE | 2020-04-22 07:07 | NUR ---
REPORT GIVEN TO DAYSHIFT NURSE. ALERT AND RESTING IN BED. NO SIGNS IV INFILTRATION. BED LOCKED AND LOW POSITION. CALL LIGHT WITHIN REACH. PATIENT AT BEDSIDE WITH CLINICAL DOCUMENT IMPROVEMENT EDUCATOR TO BE ESCORTED TO CXR.
--- NOTE | 2020-04-22 07:18 | Diagnostic Imaging Report ---
EXAMINATION: CHEST 2 VIEWS INDICATION: ^ ODRER ^[id number] ^[id number] COMPARISON: None available FINDINGS: PA and lateral views TUBES and LINES: None. LUNGS: Lungs are well inflated. There is no evidence of pneumonia or pulmonary edema. PLEURA: No pleural effusion or pneumothorax. HEART AND MEDIASTINUM: The cardiomediastinal silhouette is unremarkable. BONES AND SOFT TISSUES: No acute osseous lesion. Soft tissues are unremarkable. UPPER ABDOMEN: No free air under the diaphragm. IMPRESSION: No acute thoracic abnormality. Signed by: Dr. Geovanny Tom MD on 04/22/2020 7:14 AM
[2020-04-22] MEDS ORDERED: ONDANSETRON HCL INJ 2MG/ML 2ML 2 MG/ML VIAL IV PRN (07:30)
--- NOTE | 2020-04-22 07:31 | NUR ---
ROUNDED, PT TO HAVE RANDALL WILKS THIS AFTERNOON
[2020-04-22] MEDS ORDERED: BUPIVACAINE 0.25% 30ML SDV INJ ONE (09:58)
[2020-04-22] MEDS ORDERED: LIDOCAINE 1% W/EPINEPHRINE 20 ML VIAL ONE (09:58)
--- NOTE | 2020-04-22 12:24 | NUR ---
pt off unit for procedure
[2020-04-22] MEDS ORDERED: FENTANYL CITRATE/PF 100MCG/2 ML INJ ONE ×2 (12:37→14:01)
[2020-04-22] MEDS ORDERED: MIDAZOLAM HCL 2 MG/2 ML VIAL ONE (12:37)
[2020-04-22] MEDS ORDERED: SEVOFLURANE INHAL SOLN 250 ML PEN BTL ONE (12:39)
[2020-04-22] MEDS ORDERED: PROPOFOL IV EMULSION 10 MG/ML 20 ML VIAL ONE (12:39)
[2020-04-22] MEDS ORDERED: NEOSTIGMINE 1 MG/ML 10ML VIAL ONE (12:39)
[2020-04-22] MEDS ORDERED: LIDOCAINE HCL 2% LOCAL INJ 5 ML SDV VIAL INJ ONE (12:39)
[2020-04-22] MEDS ORDERED: ROCURONIUM BROMIDE 10 MG/ML 5ML VIAL IV ONE (12:39)
[2020-04-22] MEDS ORDERED: CEFAZOLIN SOD 1 GM VIAL ONE (12:39)
[2020-04-22] MEDS ORDERED: ONDANSETRON HCL INJ 2MG/ML 2ML 2 MG/ML VIAL ONE (12:39)
[2020-04-22] MEDS ORDERED: KETOROLAC TROMETHAMINE 30 MG/ML VIAL ONE (12:39)
[2020-04-22] MEDS ORDERED: DEXAMETHASONE SOD PHOS INJ 4 MG/ML VIAL ONE (12:39)
[2020-04-22] MEDS ORDERED: GLYCOPYRROLATE INJ 0.2 MG/ML VIAL ONE (12:39)
[2020-04-22] MEDS ORDERED: GLYCOPYRROLATE 0.2 MG/ML VIAL ONE (13:18)
[2020-04-22] MEDS ORDERED: HYDROMORPHONE 1MG/1ML INJ IV PRN (13:30)
[2020-04-22] MEDS ORDERED: HYDROCODONE/APAP 7.5MG-325MG 1 EA TAB PO PRN (13:30)
[2020-04-22] MEDS: DEXTROSE 5%/LACTATED RINGERS 1,000 ML IV SCH (13:30)
[2020-04-22] MEDS ORDERED: LEVOFLOXACIN 500MG/D5W 100ML 100 ML IV ONE (14:00)
--- NOTE | 2020-04-22 14:30 | Operative Report ---
DATE OF PROCEDURE: 04/22/2020 SURGEON: Christo Mcmahon MD PREOPERATIVE DIAGNOSES: 1. Right upper quadrant pain. 2. Gallstones. 3. Fatty liver infiltration. 4. Obesity. POSTOPERATIVE DIAGNOSES: 1. Right upper quadrant pain. 2. Gallstones. 3. Fatty liver infiltration. 4. Obesity. 5. Possible biliary dyskinesia. 6. Chronic cholecystitis. PROCEDURE PERFORMED: Laparoscopic cholecystectomy. GROUNDS AND NURSERY SPECIALIST: LAURA Castaneda ESTIMATED BLOOD LOSS: Minimal. DRAINS: None. COMPLICATIONS: None. INDICATIONS AND FINDINGS: A 34-year-old female, admitted from the emergency room, complaining of right upper quadrant pain. Ultrasound revealed no stones, and a CAT scan revealed small stones in the gallbladder that was somewhat distended. Chemistries revealed some mild elevation of the transaminases consistent with fatty liver infiltration that had been seen on the radiologic studies. There was no ductal dilatation. INTRAOPERATIVE FINDINGS: There were adhesions of the omentum to the gallbladder, soft. The gallbladder was full of bile. The cystic duct was miniscule to the point where it was less than 2 mm, whether this is a contributing factor to her pain and remains to be same. The liver was somewhat full and significantly fatty liver infiltrated. Preoperatively, the patient understood there were no guarantees that her pain would go away, but it was indicated given her workup. DESCRIPTION OF PROCEDURE: With the patient lying on the operative table in the supine position after administration of general anesthesia, she was prepped and draped for laparoscopic cholecystectomy. The procedure was begun by establishing the pneumoperitoneum in the right upper quadrant midclavicular line because of previous tubal ligation. Pneumoperitoneum was insufflated to 15 mm of pressure, then 10/11 trocar was placed in that location. The patient was then rotated to the left with the head up. We placed a 10 mm subxiphoid port and then umbilical 10 mm trocar also, and finally right anterior axillary line trocar. The gallbladder was then identified, it appeared to be full of bile with some adhesions of the omentum. The liver was heavily fatty liver infiltrated. After we lysed the omental adhesions, we began the dissection high in the neck of the gallbladder until we came to a structure that appeared to be very flimsy and thin. As this , there was the cystic duct, it was very small. We then identified the common duct, there was an artery posterior to the cystic duct, and we were able to see the part of the liver plate at this point. After we identified the triangle of cyst, we clipped the cystic duct twice distally, once proximally. The same thing happened to the cystic artery. We then began the mobilization of the gallbladder from the liver bed, which basically peeled off with the little traction, it was not adherent to the liver at all. We find a posterior branch, which was clipped and then transected, and then we basically easily detached the gallbladder from the liver bed. We removed it through the umbilical port, then we inspected the operative field. There was no bile leak, no bleeding, no apparent bowel injury. Then, we released the pneumoperitoneum and closed the wound using 0-Vicryl for the umbilical fascia, 3-0 Vicryl for the subcutaneous tissue in that location as well as the subxiphoid port, and the skin of all the port was closed using jaison. A 0.25% Marcaine with epinephrine was given as local block at the end of the case. The patient tolerated the procedure well and was taken to the recovery room in stable condition. MD CHERRI Noland/GIOVANNI /[id number]
[2020-04-22] MEDS ORDERED: MORPHINE SULFATE INJ 4 MG/ML INJ 1ML ONE (15:00)
[2020-04-22] MEDS: PANTOPRAZOLE 40 MG 10ML VIAL IV SCH (15:34)
[2020-04-22] MEDS: ONDANSETRON HCL INJ 2MG/ML 2ML 2 MG/ML VIAL IV PRN ×2 (16:29→20:42)
[2020-04-23] VITALS: BP 127/63
[2020-04-23] MEDS: DEXTROSE 5%/LACTATED RINGERS 1,000 ML IV SCH ×2 (01:42→13:24)
[2020-04-23 04:00] VITALS: BP 111/68
[2020-04-23 05:39] LABS: BASOPHILS % 0.1 % (0.0-1.0); EOSINOPHILS % 0.1 % (0.0-6.0); HEMATOCRIT 34.3 % (34.2-44.1); HEMOGLOBIN 10.4 g/dL (12.0-16.0); LYMPHOCYTES # (AUTO) 1.7 (1.0-3.2); LYMPHOCYTES % 16.2 % (18.0-39.1); MEAN CORPUSCULAR HEMOGLOBIN 24.4 pg (28-32); MEAN CORPUSCULAR HGB CONC 30.3 g/dL (31-35); MEAN CORPUSCULAR VOLUME 80.3 fL (81-99); MONOCYTES # (AUTO) 0.7 (0.2-0.8); MONOCYTES % 6.9 % (4.4-11.3); NEUTROPHILS # (AUTO) 8.1 (2.1-6.9); NEUTROPHILS % 76.3 % (38.7-80.0); PLATELET COUNT 348 x10e3/uL (140-360); RED BLOOD COUNT 4.27 x10e6/uL (3.6-5.1); RED CELL DISTRIBUTION WIDTH 15.5 % (11.7-14.4)
[2020-04-23 06:04] LABS: BLOOD UREA NITROGEN 7 mg/dL (7-26); BUN/CREATININE RATIO 9 (6-25); CALCIUM 8.9 mg/dL (8.4-10.2); CARBON DIOXIDE 23 mmol/L (22-29); CHLORIDE 106 mmol/L (98-107); CREATININE, SERUM 0.78 mg/dL (0.57-1.11); EST GLOMERULAR FILTRATION RATE > 60 ML/MIN (60-); GLUCOSE 180 mg/dL (74-118); SODIUM 136 mmol/L (136-145)
[2020-04-23 06:23] LABS: ANION GAP 11.7 mmol/L (8-16)
[2020-04-23 06:24] LABS: POTASSIUM 4.7 mmol/L (3.5-5.1)
--- NOTE | 2020-04-23 07:06 | NUR ---
REPORT GIVEN TO DAYSHIFT NURSE. ALERT AND ORIENTED. RESTING IN BED. NO SIGNS IV INFILTRATION. BED LOCKED AND IN LOW POSITION. CALL LIGHT WITHIN REACH.
[2020-04-23 08:33] VITALS: BP 111/59
[2020-04-23 12:00] VITALS: BP 111/79
[2020-04-23] MEDS ORDERED: LEVOFLOXACIN 500MG/D5W 100ML 100 ML IV SCH (14:00)
[2020-04-23] MEDS: PANTOPRAZOLE 40 MG 10ML VIAL IV SCH (14:23)
[2020-04-23 16:03] VITALS: BP 112/66
--- NOTE | 2020-04-23 18:06 | NUR ---
Consulting physician - Dr Christo Mcmahon MD HPI- This patient is a 34 year-old female presented with severe abdominal pain on 04/22/20 . Patient had cholecystectomy on 04/22/[address] Christo Mcmahon MD. She is tolerating clear liquid diet. Patient is ambulatory. No fever or chills reported. Surgery team cleared for discharge home today. Follow up with PCP in 1 week. Past medical history- none surgical history- tubal ligation Allergies- NKA Discharge diagnosis. 1. Status post cholecystectomy.
--- NOTE | 2020-04-23 18:49 | Discharge Summary ---
CONSULTING PHYSICIAN: Dr. Christo Mcmahon, surgery team. HISTORY OF PRESENT ILLNESS: This patient is a 34-year-old female who presented with severe abdominal pain on 04/22/2020. The patient was evaluated by Dr. Christo Mcmahon, who is a surgery team and had a cholecystectomy done on 04/22/2020. She is tolerating a clear liquid diet. No fever or chills reported and surgery team has cleared the patient to go home. Follow up with primary care physician in one week. PAST MEDICAL HISTORY: None. SURGICAL HISTORY: Tubal ligation. ALLERGIES: NO KNOWN ALLERGIES. PHYSICAL EXAMINATION: VITAL SIGNS: Upon on discharge, temperature is 98.1, heart rate is 62, respiratory rate is 16, blood pressure is 112/66, and pulse oximetry is 98%. LABORATORY DATA: The lab for 04/23/2020, WBCs 10.6, hemoglobin is 10.4, and hematocrit is 34.3. Sodium is 136, potassium is 4.7, BUN is 7, and creatinine 0.78. DISCHARGE DIAGNOSIS: Status post cholecystectomy. FOLLOWUP: Follow up with primary care physician and the surgery team. Dictated by Bhakti Vallejo NP MD ROYA Henry/GIOVANNI /[id number]
== END 2020-04-23 19:39 | disposition home or self-care (01) | DRG 419 ==
LOC: ER 18:23 → ERHOLD 22:07 → MED/SURG 23:02 → OBSVTOIN 04-22 15:03
PROVIDERS: ADMIT Internal Medicine; ATTEND Internal Medicine
PROC: 0FT44ZZ Resection of Gallbladder, Percutaneous Endoscopic Approach (ICD-10-PCS; principal; 2020-04-22 13:00)
DX: K80.12 Calculus of gallbladder with acute and chronic cholecystitis without obstruction (principal); K76.0 Fatty (change of) liver, not elsewhere classified; E66.9 Obesity, unspecified; Z68.39 Body mass index [BMI] 39.0-39.9, adult; Z11.59 Encounter for screening for other viral diseases
CPT/HCPCS: 36415; 71046; 74177; 76705; 80048; 80053; 81001; 81025; 82948; 85025; 88304; 99284; C1766; G0378; J0690; J1100; J1170; J1885; J1956; J2001; J2250; J2270; J2405; J2710; J3010; J7030; Q9967

== ENCOUNTER 2020-09-18 20:45 | Emergency (ER) | payer SELFPAY ==
[~2020-09-18] VITALS: Ht 165.1 cm; Wt 106.6 kg
[2020-09-18] MEDS ORDERED: KETOROLAC TROMETHAMINE 30 MG/ML VIAL IV STA (21:28)
[2020-09-18] MEDS ORDERED: KETOROLAC TROMETHAMINE 30 MG/ML VIAL ONE (21:33)
[2020-09-18 21:54] LABS: BASOPHILS % 0.3 % (0.0-1.0); EOSINOPHILS # (AUTO) 0.1 (0.0-0.4); EOSINOPHILS % 1.8 % (0.0-6.0); HEMATOCRIT 33.1 % (34.2-44.1); HEMOGLOBIN 10.2 g/dL (12.0-16.0); LYMPHOCYTES # (AUTO) 1.7 (1.0-3.2); LYMPHOCYTES % 25.8 % (18.0-39.1); MEAN CORPUSCULAR HEMOGLOBIN 23.3 pg (28-32); MEAN CORPUSCULAR HGB CONC 30.8 g/dL (31-35); MEAN CORPUSCULAR VOLUME 75.7 fL (81-99); MONOCYTES # (AUTO) 0.8 (0.2-0.8); MONOCYTES % 11.4 % (4.4-11.3); NEUTROPHILS # (AUTO) 4.1 (2.1-6.9); NEUTROPHILS % 60.4 % (38.7-80.0); PLATELET COUNT 336 x10e3/uL (140-360); RED BLOOD COUNT 4.37 x10e6/uL (3.6-5.1); RED CELL DISTRIBUTION WIDTH 14.6 % (11.7-14.4)
[2020-09-18 22:13] LABS: ALANINE AMINOTRANSFERASE 80 IU/L (0-55); ALBUMIN 3.5 g/dL (3.5-5.0); ALBUMIN/GLOBULIN RATIO 0.9 (0.8-2.0); ALKALINE PHOSPHATASE 91 IU/L (40-150); BLOOD UREA NITROGEN 11 mg/dL (7-26); BUN/CREATININE RATIO 13 (6-25); CALCIUM 8.5 mg/dL (8.4-10.2); CARBON DIOXIDE 25 mmol/L (22-29); CHLORIDE 103 mmol/L (98-107); CREATININE, SERUM 0.83 mg/dL (0.57-1.11); EST GLOMERULAR FILTRATION RATE > 60 ML/MIN (60-); GLUCOSE 311 mg/dL (74-118); SODIUM 137 mmol/L (136-145)
== END 2020-09-18 23:16 | disposition home or self-care (01) ==
LOC: ER 21:00
DX: N64.4 Mastodynia (principal); F41.9 Anxiety disorder, unspecified
CPT/HCPCS: 36415; 71045; 80053; 84484; 84702; 85025; 99283; J1885

== ENCOUNTER 2021-02-03 14:05 | Emergency (ER) | payer SELFPAY ==
[~2021-02-03] VITALS: Ht 160 cm; Wt 97.5 kg
[2021-02-03] MEDS ORDERED: ONDANSETRON HCL INJ 2MG/ML 2ML 2 MG/ML VIAL IV STA (14:19)
[2021-02-03] MEDS ORDERED: SODIUM CHLORIDE 0.9% 1000ML 1,000 ML IV STA (14:19)
[2021-02-03] MEDS ORDERED: ACETAMINOPHEN 325 MG TAB PO ONE (14:30)
[2021-02-03] MEDS ORDERED: SODIUM CHLORIDE 0.9% 1000ML 1,000 ML ONE (14:31)
[2021-02-03 14:34] LABS: BASOPHILS % 0.1 % (0.0-1.0); EOSINOPHILS # (AUTO) 0.1 (0.0-0.4); EOSINOPHILS % 1.7 % (0.0-6.0); HEMATOCRIT 36.8 % (34.2-44.1); HEMOGLOBIN 10.9 g/dL (12.0-16.0); LYMPHOCYTES % 13.6 % (18.0-39.1); MEAN CORPUSCULAR HEMOGLOBIN 22.6 pg (28-32); MEAN CORPUSCULAR HGB CONC 29.6 g/dL (31-35); MEAN CORPUSCULAR VOLUME 76.2 fL (81-99); MONOCYTES # (AUTO) 0.4 (0.2-0.8); MONOCYTES % 6.1 % (4.4-11.3); NEUTROPHILS # (AUTO) 5.5 (2.1-6.9); NEUTROPHILS % 78.1 % (38.7-80.0); PLATELET COUNT 371 x10e3/uL (140-360); RED BLOOD COUNT 4.83 x10e6/uL (3.6-5.1); RED CELL DISTRIBUTION WIDTH 15.8 % (11.7-14.4)
[2021-02-03 14:48] LABS: ALBUMIN 3.7 g/dL (3.5-5.0); ALBUMIN/GLOBULIN RATIO 0.8 (0.8-2.0); ANION GAP 13.9 mmol/L (8-16); CALCIUM 8.5 mg/dL (8.4-10.2); CREATININE, SERUM 0.73 mg/dL (0.57-1.11); MAGNESIUM 1.4 MG/DL (1.3-2.1); POTASSIUM 3.9 mmol/L (3.5-5.1)
== END 2021-02-03 17:33 | disposition home or self-care (01) ==
LOC: ER 14:16
DX: R50.9 Fever, unspecified (principal); R05 Cough; J40 Bronchitis, not specified as acute or chronic; R11.2 Nausea with vomiting, unspecified; R19.7 Diarrhea, unspecified; R94.5 Abnormal results of liver function studies; F41.9 Anxiety disorder, unspecified; Z20.822 Contact with and (suspected) exposure to COVID-19
CPT/HCPCS: 36415; 71045; 80053; 83735; 84702; 85025; 99284; C9113; J2405; J7030; U0002

== ENCOUNTER 2021-04-03 09:53 | Emergency (ER) | payer SELFPAY ==
[~2021-04-03] VITALS: Ht 160 cm; Wt 97.5 kg
[2021-04-03] MEDS ORDERED: ASPIRIN 81 MG CHEW TAB PO ONE (10:15)
[2021-04-03 10:39] LABS: BASOPHILS % 0.2 % (0.0-1.0); EOSINOPHILS # (AUTO) 0.1 (0.0-0.4); EOSINOPHILS % 0.9 % (0.0-6.0); HEMATOCRIT 34.3 % (34.2-44.1); HEMOGLOBIN 10.4 g/dL (12.0-16.0); LYMPHOCYTES # (AUTO) 1.5 (1.0-3.2); LYMPHOCYTES % 18.4 % (18.0-39.1); MEAN CORPUSCULAR HEMOGLOBIN 22.8 pg (28-32); MEAN CORPUSCULAR HGB CONC 30.3 g/dL (31-35); MEAN CORPUSCULAR VOLUME 75.1 fL (81-99); MONOCYTES # (AUTO) 0.5 (0.2-0.8); MONOCYTES % 6.4 % (4.4-11.3); NEUTROPHILS # (AUTO) 5.9 (2.1-6.9); NEUTROPHILS % 73.7 % (38.7-80.0); PLATELET COUNT 440 x10e3/uL (140-360); RED BLOOD COUNT 4.57 x10e6/uL (3.6-5.1); RED CELL DISTRIBUTION WIDTH 15.6 % (11.7-14.4)
[2021-04-03 11:00] LABS: ALANINE AMINOTRANSFERASE 52 IU/L (0-55); ALBUMIN 3.7 g/dL (3.5-5.0); ALBUMIN/GLOBULIN RATIO 0.9 (0.8-2.0); ALKALINE PHOSPHATASE 99 IU/L (40-150); ANION GAP 12.5 mmol/L (8-16); BLOOD UREA NITROGEN 10 mg/dL (7-26); BUN/CREATININE RATIO 13 (6-25); CALCIUM 8.9 mg/dL (8.4-10.2); CARBON DIOXIDE 25 mmol/L (22-29); CHLORIDE 101 mmol/L (98-107); CREATINE KINASE 69 IU/L (29-168); CREATININE, SERUM 0.77 mg/dL (0.57-1.11); EST GLOMERULAR FILTRATION RATE 84 ML/MIN (60-); GLUCOSE 222 mg/dL (74-118); POTASSIUM 3.5 mmol/L (3.5-5.1); SODIUM 135 mmol/L (136-145)
[2021-04-03] MEDS ORDERED: HYDROXYZINE HCL10 MG PO (12:52)
[2021-04-03] MEDS ORDERED: HYDROXYZINE HCL 25 MG TAB PO ONE (13:00)
== END 2021-04-03 13:40 | disposition home or self-care (01) ==
LOC: ER 10:28
DX: R00.2 Palpitations (principal); F41.9 Anxiety disorder, unspecified
CPT/HCPCS: 36415; 71045; 80053; 82550; 82553; 84484; 85025; 93005; 99284; J3410

== ENCOUNTER 2021-05-04 22:27 | Emergency (ER) | payer SELFPAY ==
[~2021-05-04] VITALS: Ht 160 cm; Wt 97.5 kg
[~2021-05-04 22:27] MED LIST changes: +HYDROXYZINE HCL10 MG PO
[2021-05-04 23:02] LABS: STREPTOCOCCUS GRP A ANTIGEN NEGATIVE (NEGATIVE)
[2021-05-04 23:11] LABS: INFLUENZAE A&B ANTIGEN (RAPID) NEGATIVE (NEGATIVE)
== END 2021-05-04 23:58 | disposition home or self-care (01) ==
LOC: ER 22:38
DX: J02.9 Acute pharyngitis, unspecified (principal); R51.9 Headache, unspecified; F41.9 Anxiety disorder, unspecified
CPT/HCPCS: 83518; 87070; 87400

== ENCOUNTER 2021-07-10 10:57 | Emergency (ER) | payer SELFPAY ==
[~2021-07-10] VITALS: Ht 160 cm; Wt 97.5 kg
[2021-07-10] MEDS ORDERED: IBUPROFEN600 MG PO (11:53)
== END 2021-07-10 12:44 | disposition home or self-care (01) ==
LOC: ER 11:17
DX: R07.89 Other chest pain (principal); J06.9 Acute upper respiratory infection, unspecified; R05.9 Cough, unspecified; F41.9 Anxiety disorder, unspecified
CPT/HCPCS: 93005; 99282

== ENCOUNTER 2021-09-25 18:44 | Emergency (ER) | payer SELFPAY ==
[~2021-09-25] VITALS: Ht 160 cm; Wt 97.5 kg
[~2021-09-25 18:44] MED LIST changes: +IBUPROFEN600 MG PO
[2021-09-25] MEDS ORDERED: IBUPROFEN600 MG PO (19:18)
[2021-09-25] MEDS ORDERED: BENZONATATE200 MG PO (19:18)
[2021-09-25] MEDS ORDERED: PROAIR HFA INH8.5 GM PEG (19:18)
== END 2021-09-25 19:40 | disposition home or self-care (01) ==
LOC: ER 18:49
DX: J10.1 Influenza due to other identified influenza virus with other respiratory manifestations (principal); R05.9 Cough, unspecified; F41.9 Anxiety disorder, unspecified; R73.9 Hyperglycemia, unspecified; Z20.822 Contact with and (suspected) exposure to COVID-19
CPT/HCPCS: 36415; 82948; 99283; U0002

== ENCOUNTER 2022-04-21 12:48 | Emergency (ER) | payer SELFPAY ==
[~2022-04-21] VITALS: Ht 160 cm; Wt 97.5 kg
[~2022-04-21 12:48] MED LIST changes: +BENZONATATE200 MG PO; +PROAIR HFA INH8.5 GM PEG
[2022-04-21] MEDS ORDERED: SODIUM CHLORIDE FLUSH 10 ML SYR IV PRN (13:00)
[2022-04-21] MEDS ORDERED: ONDANSETRON HCL INJ 2MG/ML 2ML 2 MG/ML VIAL IV ONE (13:00)
[2022-04-21] MEDS ORDERED: DONNATAL/LIDOCAINE/MAALOX 30 ML SUSP PO NR (13:00)
[2022-04-21] MEDS ORDERED: KETOROLAC TROMETHAMINE 30 MG/ML VIAL IV ONE (13:15)
[2022-04-21] MEDS ORDERED: FAMOTIDINE 20 MG/2 ML VIAL IV ONE (13:15)
[2022-04-21 13:32] LABS: EOSINOPHILS % 0.6 % (0.0-6.0); HEMATOCRIT 32.8 % (34.2-44.1); HEMOGLOBIN 9.1 g/dL (12.0-16.0); LYMPHOCYTES # (AUTO) 0.8 (1.0-3.2); LYMPHOCYTES % 11.1 % (18.0-39.1); MEAN CORPUSCULAR HEMOGLOBIN 20.5 pg (28-32); MEAN CORPUSCULAR HGB CONC 27.7 g/dL (31-35); MONOCYTES # (AUTO) 0.4 (0.2-0.8); MONOCYTES % 6.2 % (4.4-11.3); NEUTROPHILS # (AUTO) 5.5 (2.1-6.9); PLATELET COUNT 441 x10e3/uL (140-360); RED BLOOD COUNT 4.43 x10e6/uL (3.6-5.1); RED CELL DISTRIBUTION WIDTH 15.9 % (11.7-14.4)
[2022-04-21 13:46] LABS: CLARITY,URINE CLOUDY (CLEAR); COLOR,URINE YELLOW (YELLOW); LEUKOCYTE ESTERASE ,URINE NEGATIVE (NEGATIVE); NITRITE,URINE NEGATIVE (NEGATIVE)
[2022-04-21 13:47] LABS: KETONES,URINE TRACE (NEGATIVE); PROTEIN,URINE DIPSTICK NEGATIVE (NEGATIVE); URINE UROBILINOGEN 0.2 mg/dL (0.2 - 1)
[2022-04-21 13:54] LABS: ALBUMIN 3.7 g/dL (3.5-5.0); ALBUMIN/GLOBULIN RATIO 0.9 (0.8-2.0); ANION GAP 15.8 mmol/L (8-16); CALCIUM 9.2 mg/dL (8.4-10.2); CREATININE, SERUM 0.74 mg/dL (0.57-1.11); POTASSIUM 3.8 mmol/L (3.5-5.1)
[2022-04-21 14:10] LABS: BACTERIA,URINE MODERATE /HPF; EPITHELIAL CELLS,URINE FEW /LPF; MUCUS,URINE FEW (RARE); WBC,URINE (MAN) 0-5 /HPF (0-5)
[2022-04-21] MEDS ORDERED: IOPAMIDOL 370 MG/ML 100 ML INFUS..BTL INJ ONE (14:33)
[2022-04-21] MEDS ORDERED: DICYCLOMINE HCL20 MG PO (14:44)
[2022-04-21] MEDS ORDERED: PEPCID20 MG PO (14:44)
[2022-04-21] MEDS ORDERED: ACETAMINOPHEN 325 MG TAB PO NR (14:45)
== END 2022-04-21 15:15 | disposition home or self-care (01) ==
LOC: ER 12:51
DX: R11.2 Nausea with vomiting, unspecified (principal); R10.13 Epigastric pain; R10.33 Periumbilical pain; F41.9 Anxiety disorder, unspecified
CPT/HCPCS: 36415; 74177; 80053; 81001; 81025; 83690; 85025; 99284; J1885; J2405; Q9967

== ENCOUNTER 2024-08-27 14:05 | Emergency (ER) | payer OTHER ==
[~2024-08-27] VITALS: Ht 167.6 cm; Wt 99.8 kg
[~2024-08-27 14:05] MED LIST changes: +DICYCLOMINE HCL20 MG PO; +FIORICET 50-301 EACH PO; +LIDOCAINE1 EACH EXT; +NEURONTIN300 MG PO; +PEPCID20 MG PO
[2024-08-27 14:10] VITALS: TEMP 98.3
[2024-08-27] MEDS: SODIUM CHLORIDE 0.9% 1000ML 1,000 ML IV STA (14:55)
[2024-08-27 14:57] LABS: BASOPHILS % 0.5 % (0.0-1.0); EOSINOPHILS # (AUTO) 0.1 (0.0-0.4); EOSINOPHILS % 2.2 % (0.0-6.0); HEMATOCRIT 33.7 % (34.2-44.1); HEMOGLOBIN 10.2 g/dL (12.0-16.0); LYMPHOCYTES # (AUTO) 1.4 (1.0-3.2); LYMPHOCYTES % 23.5 % (18.0-39.1); MEAN CORPUSCULAR HEMOGLOBIN 22.6 pg (28-32); MEAN CORPUSCULAR HGB CONC 30.3 g/dL (31-35); MEAN CORPUSCULAR VOLUME 74.6 fL (81-99); MONOCYTES # (AUTO) 0.4 (0.2-0.8); MONOCYTES % 7.2 % (4.4-11.3); NEUTROPHILS % 66.4 % (38.7-80.0); PLATELET COUNT 349 x10e3/uL (140-360); RED BLOOD COUNT 4.52 x10e6/uL (3.6-5.1); RED CELL DISTRIBUTION WIDTH 14.9 % (11.7-14.4)
[2024-08-27 15:23] LABS: ALANINE AMINOTRANSFERASE 36 IU/L (0-55); ALBUMIN 3.5 g/dL (3.5-5.0); ALBUMIN/GLOBULIN RATIO 0.9 (0.8-2.0); ALKALINE PHOSPHATASE 84 IU/L (40-150); BILIRUBIN,TOTAL 0.4 mg/dL (0.2-1.2); BLOOD UREA NITROGEN 11 mg/dL (7-26); BUN/CREATININE RATIO 14 (6-25); CALCIUM 8.7 mg/dL (8.4-10.2); CARBON DIOXIDE 20 mmol/L (22-29); CHLORIDE 104 mmol/L (98-107); CREATININE, SERUM 0.78 mg/dL (0.57-1.11); EST GLOMERULAR FILTRATION RATE 98 ML/MIN (>=60); GLUCOSE 236 mg/dL (74-118); SODIUM 133 mmol/L (136-145); TOTAL PROTEIN 7.2 g/dL (6.5-8.1)
[2024-08-27 16:47] LABS: BILIRUBIN,URINE NEGATIVE (NEGATIVE); CLARITY,URINE CLEAR (CLEAR); COLOR,URINE YELLOW (YELLOW); GLUCOSE, URINE 500 (NEGATIVE); KETONES,URINE NEGATIVE (NEGATIVE); LEUKOCYTE ESTERASE ,URINE NEGATIVE (NEGATIVE); NITRITE,URINE NEGATIVE (NEGATIVE); PH,URINE 5.5 (5 - 7); PROTEIN,URINE DIPSTICK NEGATIVE (NEGATIVE); URINE UROBILINOGEN 0.2 mg/dL (0.2 - 1)
[2024-08-27 16:48] VITALS: PULSE 66; RESP 18; O2SAT 100
[2024-08-27 16:48] LABS: AMPHETAMINES SCREEN,URINE NEGATIVE (NEGATIVE); BENZODIAZEPINES SCREEN,URINE NEGATIVE (NEGATIVE); CANNABINOIDS SCREEN,URINE NEGATIVE (NEGATIVE); COCAINE SCREEN,URINE NEGATIVE (NEGATIVE); METHADONE SCREEN, URINE NEGATIVE (NEGATIVE); OPIATES SCREEN,URINE NEGATIVE (NEGATIVE); PHENCYCLIDINE SCREEN,URINE NEGATIVE (NEGATIVE)
[2024-08-27 16:53] LABS: RBC,URINE >50 /HPF (0-5)
[2024-08-27 16:54] LABS: BACTERIA,URINE MODERATE /HPF; EPITHELIAL CELLS,URINE MANY /LPF; MUCUS,URINE FEW
== END 2024-08-27 17:21 | disposition home or self-care (01) ==
LOC: ER 14:07
DX: R55 Syncope and collapse (principal); M25.512 Pain in left shoulder; E11.65 Type 2 diabetes mellitus with hyperglycemia; K76.9 Liver disease, unspecified; D64.9 Anemia, unspecified; K21.9 Gastro-esophageal reflux disease without esophagitis; F41.9 Anxiety disorder, unspecified
CPT/HCPCS: 36415; 70450; 80053; 80307; 81001; 84484; 84702; 85025; 93005; 99284; J7030

== ENCOUNTER 2024-10-05 07:21 | Emergency (ER) | payer OTHER ==
[~2024-10-05] VITALS: Ht 154.9 cm; Wt 103.0 kg
[2024-10-05 07:22] VITALS: TEMP 99.6
[2024-10-05] MEDS ORDERED: SODIUM CHLORIDE 0.9% 1000ML 1,000 ML ONE (07:37)
[2024-10-05 07:57] LABS: BASOPHILS % 0.3 % (0.0-1.0); EOSINOPHILS # (AUTO) 0.2 (0.0-0.4); EOSINOPHILS % 1.9 % (0.0-6.0); HEMATOCRIT 27.9 % (34.2-44.1); HEMOGLOBIN 8.4 g/dL (12.0-16.0); LYMPHOCYTES % 24.8 % (18.0-39.1); MEAN CORPUSCULAR HEMOGLOBIN 23.2 pg (28-32); MEAN CORPUSCULAR HGB CONC 30.1 g/dL (31-35); MEAN CORPUSCULAR VOLUME 77.1 fL (81-99); MONOCYTES # (AUTO) 0.4 (0.2-0.8); MONOCYTES % 5.5 % (4.4-11.3); NEUTROPHILS # (AUTO) 5.3 (2.1-6.9); PLATELET COUNT 399 x10e3/uL (140-360); RED BLOOD COUNT 3.62 x10e6/uL (3.6-5.1); RED CELL DISTRIBUTION WIDTH 17.2 % (11.7-14.4); WHITE BLOOD COUNT 7.87 x10e3/uL (4.8-10.8)
[2024-10-05] MEDS ORDERED: ONDANSETRON HCL INJ 2MG/ML 2ML 2 MG/ML VIAL ONE (07:57)
[2024-10-05] MEDS: ONDANSETRON HCL INJ 2MG/ML 2ML 2 MG/ML VIAL IV STA (08:19)
[2024-10-05 08:24] LABS: ALBUMIN 3.2 g/dL (3.5-5.0); ALBUMIN/GLOBULIN RATIO 0.7 (0.8-2.0); ANION GAP 13.9 mmol/L (8-16); BILIRUBIN,TOTAL 0.2 mg/dL (0.2-1.2); CALCIUM 8.7 mg/dL (8.4-10.2); CREATININE, SERUM 0.82 mg/dL (0.57-1.11); POTASSIUM 3.9 mmol/L (3.5-5.1); TOTAL PROTEIN 7.5 g/dL (6.5-8.1)
[2024-10-05 08:30] LABS: TROPONIN I 0.006 ng/mL (0-0.300)
[2024-10-05] MEDS ORDERED: SODIUM CHLORIDE 0.9% 1000ML 1,000 ML IV SCH (08:30)
[2024-10-05 09:02] LABS: INFLUENZA A AG NEGATIVE (NEGATIVE)
[2024-10-05 09:03] LABS: CORONAVIRUS COVID-19 AG NEGATIVE (NEGATIVE); INFLUENZA B AG NEGATIVE (NEGATIVE)
[2024-10-05] MEDS ORDERED: AZITHROMYCIN250 MG PO (09:04)
[2024-10-05] MEDS ORDERED: PREDNISONE20 MG PO (09:04)
[2024-10-05] MEDS ORDERED: VENTOLIN HFA18 GM INH (09:06)
[2024-10-05 10:35] VITALS: PULSE 77; RESP 12; O2SAT 100
== END 2024-10-05 10:36 | disposition home or self-care (01) ==
LOC: ER 07:28
DX: R06.02 Shortness of breath (principal); R53.1 Weakness; E11.65 Type 2 diabetes mellitus with hyperglycemia; K76.9 Liver disease, unspecified; D64.9 Anemia, unspecified; K21.9 Gastro-esophageal reflux disease without esophagitis; F41.9 Anxiety disorder, unspecified
CPT/HCPCS: 36415; 71045; 80053; 82550; 83690; 83880; 84484; 85025; 86850; 86900; 93005; 99284; J2405; J7030

== ENCOUNTER 2024-10-11 12:36 | Observation (INO) | payer OTHER ==
[~2024-10-11] VITALS: Ht 165.1 cm; Wt 101.6 kg
[2024-10-11] VITALS (7 sets, daily range): BP systolic 118–121; BP diastolic 53–57; PULSE 69–71; RESP 16–18; TEMP 97.1–98.1; O2SAT 100
[~2024-10-11 12:36] MED LIST changes: +AZITHROMYCIN250 MG PO; +PREDNISONE20 MG PO; +VENTOLIN HFA18 GM INH
[2024-10-11 14:08] LABS: BASOPHILS % 0.3 % (0.0-1.0); EOSINOPHILS # (AUTO) 0.1 (0.0-0.4); EOSINOPHILS % 2.1 % (0.0-6.0); HEMATOCRIT 25.5 % (34.2-44.1); HEMOGLOBIN 7.4 g/dL (12.0-16.0); LYMPHOCYTES % 15.6 % (18.0-39.1); MEAN CORPUSCULAR HEMOGLOBIN 22.7 pg (28-32); MEAN CORPUSCULAR VOLUME 78.2 fL (81-99); MONOCYTES # (AUTO) 0.4 (0.2-0.8); MONOCYTES % 5.3 % (4.4-11.3); NEUTROPHILS # (AUTO) 5.1 (2.1-6.9); NEUTROPHILS % 76.4 % (38.7-80.0); PLATELET COUNT 284 x10e3/uL (140-360); RED BLOOD COUNT 3.26 x10e6/uL (3.6-5.1); RED CELL DISTRIBUTION WIDTH 16.2 % (11.7-14.4); WHITE BLOOD COUNT 6.66 x10e3/uL (4.8-10.8)
[2024-10-11] MEDS: SODIUM CHLORIDE 0.9% 1000ML 1,000 ML IV STA (14:16)
[2024-10-11 14:32] LABS: ALANINE AMINOTRANSFERASE 53 IU/L (0-55); ALBUMIN 3.1 g/dL (3.5-5.0); ALBUMIN/GLOBULIN RATIO 0.9 (0.8-2.0); ALKALINE PHOSPHATASE 62 IU/L (40-150); ANION GAP 13.7 mmol/L (8-16); BILIRUBIN,TOTAL 0.3 mg/dL (0.2-1.2); BLOOD UREA NITROGEN 9 mg/dL (7-26); BUN/CREATININE RATIO 11 (6-25); CALCIUM 8.3 mg/dL (8.4-10.2); CARBON DIOXIDE 20 mmol/L (22-29); CHLORIDE 105 mmol/L (98-107); CREATININE, SERUM 0.83 mg/dL (0.57-1.11); EST GLOMERULAR FILTRATION RATE 91 ML/MIN (>=60); GLUCOSE 273 mg/dL (74-118); MAGNESIUM 1.6 MG/DL (1.3-2.1); POTASSIUM 4.7 mmol/L (3.5-5.1); SODIUM 134 mmol/L (136-145); TOTAL PROTEIN 6.6 g/dL (6.5-8.1)
[2024-10-11 14:38] LABS: TROPONIN I 0.002 ng/mL (0-0.300)
[2024-10-11] MEDS: SODIUM CHLORIDE 0.9% 1000ML 1,000 ML IV SCH (16:12)
[2024-10-11 16:36] LABS: INR 0.99; PROTHROMBIN TIME 13.7 seconds (11.9-14.5)
[2024-10-11 16:37] LABS: PARTIAL THROMBOPLASTIN TIME 18.2 seconds (23.8-35.5)
[2024-10-11] MEDS ORDERED: LARIN FE 1-201 EACH PO (17:56)
[2024-10-11] MEDS ORDERED: FERROUS SULFAT325 MG PO (17:56)
[2024-10-11] MEDS: ACETAMINOPHEN 325 MG TAB PO PRN (23:27)
[2024-10-11] MEDS ORDERED: MELATONIN 5 MG TABLET PO PRN (23:30)
[2024-10-11] MEDS ORDERED: ALBUTEROL/IPRATROPIUM 3 ML NEB NEB PRN (23:30)
[2024-10-11] MEDS ORDERED: HYDRALAZINE HCL 20 MG/ML VIAL IV PRN (23:30)
[2024-10-11] MEDS ORDERED: DIPHENHYDRAMINE HCL 25 MG CAP PO PRN (23:30)
[2024-10-11] MEDS ORDERED: BENZONATATE 100 MG CAP PO PRN (23:30)
[2024-10-11] MEDS ORDERED: LIDOCAINE 4% PATCH TP PRN (23:30)
[2024-10-11] MEDS ORDERED: SIMETHICONE 80 MG CHEW PO PRN (23:30)
[2024-10-11] MEDS ORDERED: DEXTROSE 50% SYRINGE 50 ML IV PRN (23:30)
[2024-10-11] MEDS ORDERED: POTASSIUM CHLORIDE 20 MEQ TAB CR PO PRN (23:30)
[2024-10-11] MEDS ORDERED: DOCUSATE SODIUM 100 MG CAP PO PRN (23:30)
[2024-10-12] VITALS (9 sets, daily range): BP systolic 107–125; BP diastolic 57–80; PULSE 57–81; RESP 16–18; TEMP 97.9–98.5; O2SAT 98–100
[2024-10-12 00:45] LABS: % IRON SATURATION 3 % (15-50); IRON 19 ug/dL (50-170); TOTAL IRON BINDING CAPACITY 585 ug/dL (261-478); TRANSFERRIN 418 mg/dL (180-382)
[2024-10-12 01:36] LABS: TROPONIN I 0.004 ng/mL (0-0.300)
[2024-10-12] MEDS: SODIUM CHLORIDE 0.9% 250ML 250 ML ONE ×2 (07:43)
[2024-10-12 07:58] LABS: BASOPHILS % 0.3 % (0.0-1.0); EOSINOPHILS # (AUTO) 0.2 (0.0-0.4); EOSINOPHILS % 3.6 % (0.0-6.0); HEMATOCRIT 28.3 % (34.2-44.1); HEMOGLOBIN 8.7 g/dL (12.0-16.0); LYMPHOCYTES # (AUTO) 2.1 (1.0-3.2); LYMPHOCYTES % 34.3 % (18.0-39.1); MEAN CORPUSCULAR HEMOGLOBIN 24.6 pg (28-32); MEAN CORPUSCULAR HGB CONC 30.7 g/dL (31-35); MEAN CORPUSCULAR VOLUME 79.9 fL (81-99); MONOCYTES # (AUTO) 0.5 (0.2-0.8); MONOCYTES % 7.6 % (4.4-11.3); NEUTROPHILS # (AUTO) 3.3 (2.1-6.9); NEUTROPHILS % 53.9 % (38.7-80.0); PLATELET COUNT 335 x10e3/uL (140-360); RED BLOOD COUNT 3.54 x10e6/uL (3.6-5.1); RED CELL DISTRIBUTION WIDTH 16.4 % (11.7-14.4); WHITE BLOOD COUNT 6.09 x10e3/uL (4.8-10.8)
[2024-10-12 08:37] LABS: ALBUMIN 2.9 g/dL (3.5-5.0); ALBUMIN/GLOBULIN RATIO 1.1 (0.8-2.0); ANION GAP 13.1 mmol/L (8-16); BILIRUBIN,TOTAL 0.4 mg/dL (0.2-1.2); CREATININE, SERUM 0.74 mg/dL (0.57-1.11); MAGNESIUM 1.6 MG/DL (1.3-2.1); POTASSIUM 4.1 mmol/L (3.5-5.1); TOTAL PROTEIN 5.6 g/dL (6.5-8.1)
[2024-10-12] MEDS: PANTOPRAZOLE SOD 40 MG TABEC PO SCH (09:10)
[2024-10-12] MEDS: SODIUM FERRIC GLUCONATE COMPLX 125 MG in SODIUM CHLORIDE 0.9% 100 ML IV SCH (15:48)
[2024-10-12 17:42] LABS: HEMATOCRIT 30.2 % (34.2-44.1); HEMOGLOBIN 9.6 g/dL (12.0-16.0)
[2024-10-12] MEDS: LACTULOSE SYRUP 20 GM/30 ML UDC PO PRN (18:21)
[2024-10-13 03:30] VITALS: BP 114/60; PULSE 71; RESP 18; TEMP 98.3; O2SAT 100
[2024-10-13 05:46] LABS: HEMATOCRIT 30.4 % (34.2-44.1); HEMOGLOBIN 9.4 g/dL (12.0-16.0)
[2024-10-13 06:20] LABS: CALCIUM 8.5 mg/dL (8.4-10.2); CREATININE, SERUM 0.73 mg/dL (0.57-1.11)
[2024-10-13 08:25] VITALS: BP 120/68; PULSE 71; RESP 19; TEMP 98; O2SAT 100
[2024-10-13] MEDS: ONDANSETRON HCL INJ 2MG/ML 2ML 2 MG/ML VIAL IV PRN (09:09)
[2024-10-13 11:33] VITALS: BP 135/76; PULSE 67; RESP 19; TEMP 98.2; O2SAT 100
[2024-10-13] MEDS ORDERED: ONDANSETRON ODT4 MG PO (12:10)
== END 2024-10-13 16:00 | disposition home or self-care (01) ==
LOC: ER 13:47 → ERHOLD 15:54 → MED/SURG2 17:25
PROVIDERS: ADMIT Internal Medicine; ATTEND Internal Medicine
DX: D50.0 Iron deficiency anemia secondary to blood loss (chronic) (principal); N92.0 Excessive and frequent menstruation with regular cycle; R42 Dizziness and giddiness; E11.9 Type 2 diabetes mellitus without complications; K21.9 Gastro-esophageal reflux disease without esophagitis; F41.9 Anxiety disorder, unspecified; K76.0 Fatty (change of) liver, not elsewhere classified
CPT/HCPCS: 36430; P9016; 36415; 70450; 80048; 80053; 82550; 82948; 83036; 83540; 83735; 84466; 84484; 84702; 85014; 85018; 85025; 85610; 85730; 86850; 86900; 86920; 93005; 99284; G0378; J2405; J2470; J2916; J7030; J7050